=== PATIENT | female | born 1985 | race Caucasian/White ===

== ENCOUNTER 2018-01-22 09:12 | Emergency (ER) | payer MEDICAID, SELFPAY ==
[2018-01-22 09:13] VITALS: BP 139/88; PULSE 116; RESP 30; TEMP 36.4; O2SAT 99; BMI 49.2
--- NOTE | 2018-01-22 09:29 | ED.DCSUM_ITS ---
- ER Visit Summary Date of Service: 01/22/18 Chief Complaint: Sore throat History of Present Illness: The patient is a 32 F 3 of asthma currently 13 weeks . Ab1. Due date 08/03/2018. She has never had a DVT or PE. Patient states she has a sore throat. Painful to swallow. States she feels short of breath. Cough of green phlegm. Subjective fever and chills. Physical Examination: Young female anxious. Vital signs are stable afebrile. Pulse ox 99% on room air no signs of hypoxia. She is in no acute distress. HEENT exam posterior pharynx has enlarged red tonsils with exudate bilaterally. Airways patent. No drooling. Able to swallow. No stridor. Neck trachea midline. Minimal anterior chain lymphadenopathy. Lungs clear to auscultation bilaterally. Heart regular rhythm no murmur. Abdomen is obese but soft nontender normal bowel sounds no peritoneal signs. She is moving all 4 extremities without edema or cords. No calf tenderness. Neurologically she is awake alert with no focal motor deficits. Emotionally she is anxious and tearful but calms down with reassurance. Test Results: None Emergency Department Course and Treatment: History and exam are consistent with strep throat. Be started on amoxicillin 500 3 times daily for 10 days. Warm salt water gargling. Fluids and rest. Tylenol for pain. Treatment Plan: Amoxicillin 3 times daily for 10 days Disposition: Discharge Impression: Acute strep tonsillitis First trimester This note was generated with [employer] dictation software. It may contain incorrect words, spelling, and punctuation that were not noted in review of the chart prior to signing ED Disposition - Plan for ED Patient: Chief Complaint: Shortness of Breath Referrals: Polly Torres DO [Primary Care Provider] -
--- NOTE | 2018-01-22 09:29 | ED.DEP ---
ED Disposition - Plan for ED Patient: Disposition: Home or Assisted Living Chief Complaint: Shortness of Breath Instructions: Strep Throat Prescriptions: Albuterol Inhaler [Ventolin Hfa] 1 - 2 puff INHALATION Q4H PRN PRN #1 inhaler PRN Reason: Wheezing Amoxicillin 500 mg PO TID #30 tab Referrals: Polly Torres DO [Primary Care Provider] - 3-5 Days if not improving Additional Instructions: Plenty of fluids and rest. Warm salt water gargling. Tylenol for pain. Diagnosed with strep throat. Amoxicillin 3 times a day for 10 days should resolve that. For your constipation plenty of fluids, fruits, vegetables and fiber. Follow-up your doctor if not improving or return to ER feeling worse.
[2018-01-22] MEDS: AMOXICILLIN 500 MG CAPSULE PO (09:41)
[2018-01-22 09:56] VITALS: O2SAT 96
--- NOTE | 2018-01-23 13:55 | CM.ED ---
ED CM Callback: Attempted to followup with patient. Voicemail left with contact information requesting return call if patient has any questions/concerns.
== END 2018-01-22 09:56 | disposition home or self-care (01) ==
LOC: ED 09:38
PROVIDERS: Emergency Provider Emergency Medicine; Family Provider Family Medicine; PCP Family Medicine
DX: O26.891 Other specified pregnancy related conditions, first trimester (principal); J03.00 Acute streptococcal tonsillitis, unspecified; R05 Cough; J45.909 Unspecified asthma, uncomplicated; Z87.891 Personal history of nicotine dependence; Z3A.13 13 weeks gestation of pregnancy
CPT/HCPCS: 99282

== ENCOUNTER → 2018-04-29 10:59 | Outpatient (CLI) | payer MEDICAID, SELFPAY | PROVIDERS: Family Provider Family Medicine; PCP Family Medicine; Visit Provider Family Medicine | DX: O26.892 Other specified pregnancy related conditions, second trimester (principal); R00.2 Palpitations; Z3A.26 26 weeks gestation of pregnancy | CPT/HCPCS: 93225; 93226 ==

== ENCOUNTER 2018-05-24 20:58 | Outpatient (CLI) | payer MEDICAID, SELFPAY ==
[2018-05-24 21:23] VITALS: BMI 48.9
[2018-05-24 21:36] LABS: Red Blood Cells-Urine 0 SEEN /hpf (0-5)
[2018-05-24 21:50] LABS: Color, Urine Yellow (Yellow); Glucose, Dipstick Normal (Normal); Ketone-Dipstick 5 mg/dl (Negative); Leukocyte Esterase-Dipstick 100 /ul (Negative); Nitrite-Dipstick Negative (Negative); Occult Blood-Urine Negative /ul (Negative); Protein-Dipstick 30 mg/dl (Negative); Specific Gravity, Urine 1.025 (1.002-1.030); Urine Clarity Sl. Cloudy (Clear); Urine Urobilinogen 4 mg/dl (Normal)
[2018-05-24 21:55] LABS: Urine Bilirubin Dipstick 1 mg/dL (Negative)
[2018-05-24 22:06] LABS: Bacteria 4+ /hpf (None Seen); Mucous, Urine 2+ /hpf (<or=2+); Squamous Epithelial Cells - UA 25-50 SEEN /hpf (5-10); White Blood Cells 10-25 SEEN /hpf (0-5)
--- NOTE | 2018-05-25 01:35 | OB.TRI.NOTE ---
- Problem List (1) False labor Status: Acute History of Present Illness Date of Service: 05/24/18 Was patient seen by the physician?: No Reason For Visit: R/O LABOR Date of Service: 05/24/18 Final EFRAIN: 08/03/18 Final EFRAIN Source: US <20 weeks Gestational age: 30 Weeks and 0 Days History of Present Illness: Presented to L&D with complaint of abdominal pain and uterine contractions. Denied any leakage of fluid or vaginal bleeding. Good movement. Allergies sertraline HCl [From Zoloft] Allergy (Verified 01/22/18 09:14) Rash Sulfa (Sulfonamide Antibiotics) Allergy (Verified 05/24/18 21:35) Rash tomato [Tomato] Allergy (Verified 01/22/18 09:14) Hives NST - FHR Rate Baby A Baseline: 130 Variability:: Moderate Accelerations:: 15 x 15 Decelerations:: None NST Reactive:: Yes, Appropriate for gestational age Uterine Activity:: Irregular Impression/Plan A: False labor P: 1) D/C home
== END 2018-05-24 22:50 | disposition home or self-care (01) ==
LOC: WPOUT 21:22 → WP 21:23
PROVIDERS: Family Provider Family Medicine; PCP Family Medicine; Visit Provider Obstetrics & Gynecology
DX: O47.03 False labor before 37 completed weeks of gestation, third trimester (principal); Z3A.30 30 weeks gestation of pregnancy
CPT/HCPCS: 59025; 59050; 81001; 87086; 87088; 99218; G0378

== ENCOUNTER 2018-07-09 10:30 | Outpatient (RCR) | payer MEDICAID, SELFPAY ==
--- NOTE | 2018-05-06 09:35 | HP.PTEVAL_ITS ---
Patient's Visit Information DARSHAN MANCERA is a 32 year old F referred to Physical Therapy by June Negro MD with a diagnosis of Sciatica. Date of Evaluation: 05/01/18 Physical Therapist: Seven Garcia - Visit Plan Frequency: 2x /Week Duration: 4-6 Weeks Plan: Start with aquatic setting hip/core stability, improve postural education and awareness, HS stretching, deep water distraction. Educated Pt on SI belt to increase stability. - Subjective Subjective: Pt. is here today for her initial evaluation diagnosis of R sided sciatica. Pt. is ~24 weeks and has been having increased symptoms for about 2 months. Pt. reports pain going down her leg to her foot with numbness and tingling fequently. Pt. has has relief, briefly, with transitions rn care coordinator. Pt. reports increased pain with bending over, lifting, walking for prolonged times, sitting for too long. Decreased pain: supine lying. Pt. reports havig relief with aquatic therapy previously. Pt. has not trialed any exercises currently. Pt. reports having similar issues with previous . Pt. does reports some R leged weakness as times. Pt. is hopeful to reduce symptoms in order to get back to all reactional activities and ADLs without limitations. - Pain R leg Pain Intensity (Out of 10): 4 Pain Intensity Range: 2, 6 Low back Pain Intensity (Out of 10): 2 Pain Intensity Range: 2, 6 - Objective POSTURE: Pt. has increased lumbar lordosis with anterior pelvic rotation. Pt. has increased pain with attempting to correct. Pt. has wide CHRITSINE and normal iliac crest heights. PALAPTION: Pt. has increased tenderness at bilateral erect spinal throughout the lumbar spine, R sided SI and R sided piriformis. NEUROLOGICAL: Pt. has normal sensation to light and sharp touch of BLEs. Pt. has 2+ bilateral achilles and patellar DTR. Pt. is able to rise on heels and toes without limitations. ROM: LUMBAR SPINE: flexion- min loss increase NW, ext min loss increase NW, SB min loss to R side increase NW, SB L nil loss NE, rotation R min lsos increase NE, rotation L min loss increase NW. Pt. has tight BLE HS, tight hip flexors bilaterally. MMT: RLE- ankle 5/5 throughout; knee- ext 4+/5, flexion 4/5; hip- flexon 4/5 increase NW, abd 4/5, ext 4/5. LLE- ankle 5/5 througout; knee- ext 4+/54, flexion 4+/5; hip- flexion 4+/5, abd 4/5, ext 4/5. Core strength- poor. GAIT: Pt. has increased lateral hip translation, B knee valgus, sway back positioning. Increased pain noted with walking. Minimal arm swing bilaterally noted. STAIRS: Pt. is kory to negotiate with 2 HR with reciprocal pattern, but does have heavy use of HR. - Special Tests L/S Slump test left side: Negative L/S Slump test right side: Positive L/S Left Straight Leg Raise: Negative L/S Right Straight Leg Raise: Negative Lumbar Standing: Flexion - Mechanical Response: No effect Lumbar Standing: Flexion - Symptoms During Testing: Increases Lumbar Standing: Flexion - Symptoms After Testing: No worse Lumbar Standing: Extension - Mechanical Response: No effect Lumbar Standing: Extension - Symptoms During Testing: No effect Lumbar Standing: Extension - Symptoms After Testing: No effect Lumbar Standing: Right Side Glides - Mechanical Response: No effect Lumbar Standing: Right Side Ralph - Symptoms During Testing: No effect Lumbar Standing: Right Side Ralph - Symptoms After Testing: No effect Lumbar Standing: Left Side Ralph - Mechanical Response: No effect Lumbar Standing: Left Side Ralph - Symptoms During Testing: No effect Lumbar Standing: Left Side Ralph - Symptoms After Testing: No effect Lumbar Lying: Flexion - Mechanical Response: No effect Lumbar Lying: Flexion - Symptoms During Testing: No effect Lumbar Lying: Flexion - Symptoms After Testing: No effect Lumbar Lying: Extension - Mechanical Response: No effect Lumbar Lying: Extension - Symptoms During Testing: Increases Lumbar Lying: Extension - Symptoms After Testing: No worse - Goals Goal 1:: Pt. to be HEP compliant. Goal Time Frame: 4-6 Weeks Goal 2:: Pt. to have decreased pain in lumbar spine and RLE to 0-2/10 pain with all mobility. Goal Time Frame: 4-6 Weeks Goal 3:: Pt. to demonstrate improved posture in sitting and standing to reduce stress applied to lumbar spine. Goal Time Frame: 4-6 Weeks Goal 4:: Pt. to be educated in prophalxis techniques. Goal Time Frame: 4-6 Weeks - Rehabilitation Potential Physical Therapy Diagnosis: Pt. has signs and symptoms consistent with Sciatica. Pt. has increased pain going down R LE to foot, worse with walking, standing and lifting. Pt. would benefit from PT to increase core stability, HS length, and to improve proper posture. Pt. will start in aquatic setting to increase tolerance. Rehabilitation Potential: Good - Anticipated Interventions Patient/Client Instruction: Educate patient on: Condition, Plan of Care, Risk Factors, Benefits of Fitness Program For the Purpose of:: To improve health and function, To foster healthy habits, To improve decision making, To facilitate caregiver knowledge, To improve self management, To prevent re-injury, To improve ability to perform tasks related to life management, To improve tolerance to ADL's Therapeutic Exercise to Include: Strength training, Power training, Postural training, Flexibilty training, Gait and locomotor training, In an aquatic setting, Passive ROM, Active ROM, Dynamic Lumbar Stabilization, Arvin Exercises For the Purpose of:: To decrease pain, To increase ROM, To improve nutrient delivery to tissue, To increase oxygenation perfusion, To improve muscle performance and motor function Thank you for the opportunity to evaluate your patient. For Medicare and Medicare HMO plans, please review the plan of care and approve it. It will need to be FAXED BACK to us at [phone] for Medicare purposes. Please let me know if there are questions or concerns regarding this plan of care. Physician Signature: Date:
--- NOTE | 2018-06-15 11:59 | HP.PTREVAL ---
June Negro MD, It has been my pleasure to treat DARSHAN MANCERA over the last 12 visits for Sciatica. Please see the progress note below for an update on the physical therapy plan of care! Subjective: Pt. reports I am feeling great in the pool, but when I get out the pain starts to come back. Pt. reports being compliant with all HEP without adverse reaction. Objective/Function: ROM: lumbar spine- flexion min loss increase NW, ext min loss NE, SB min loss NE bilat, rotation nil loss bilat NE. BLEs- normal, tight HS. MMT: bilateral LEs 5/5 throughout, except 4/5 hip abd and hip flexion bilat. Core strength- poor+. GAIT: Pt. tends to Plan Plan: Pt. to continue with aquatic therapy with focus on ROM, core/SI stability exercises as tolerated. Pt. to be seen x2 per week for 3-4 weeks. Goals Goal 1:: Pt. to be HEP compliant. Goal Time Frame: 4-6 Weeks Goal 2:: Pt. to have decreased pain in lumbar spine and RLE to 0-2/10 pain with all mobility. Goal Time Frame: 4-6 Weeks Goal 3:: Pt. to demonstrate improved posture in sitting and standing to reduce stress applied to lumbar spine. Goal Time Frame: 4-6 Weeks Goal 4:: Pt. to be educated in prophalxis techniques. Goal Time Frame: 4-6 Weeks Anticipated Interventions Patient/Client Instruction: Educate patient on: Condition, Plan of Care, Risk Factors, Benefits of Fitness Program For the Purpose of:: To improve health and function, To foster healthy habits, To improve decision making, To facilitate caregiver knowledge, To improve self management, To prevent re-injury, To improve ability to perform tasks related to life management, To improve tolerance to ADL's Therapeutic Exercise to Include: Strength training, Power training, Postural training, Flexibilty training, Gait and locomotor training, In an aquatic setting, Passive ROM, Active ROM, Dynamic Lumbar Stabilization, Arvin Exercises For the Purpose of:: To decrease pain, To increase ROM, To improve nutrient delivery to tissue, To increase oxygenation perfusion, To improve muscle performance and motor function Please do not hesitate to contact me at [phone] by phone or if you have questions or concerns regarding this new plan of care! Sincerely, Seven Garcia
--- NOTE | 2018-06-15 12:07 | HP.PTREVAL ---
June Negro MD, It has been my pleasure to treat DARSHAN MANCERA over the last 12 visits for Sciatica. Please see the progress note below for an update on the physical therapy plan of care! Subjective: Pt. reports I am feeling great in the pool, but when I get out the pain starts to come back. Pt. reports being compliant with all HEP without adverse reaction. Objective/Function: ROM: lumbar spine- flexion min loss increase NW, ext min loss NE, SB min loss NE bilat, rotation nil loss bilat NE. BLEs- normal, tight HS. MMT: bilateral LEs 5/5 throughout, except 4/5 hip abd and hip flexion bilat. Core strength- poor+. GAIT: Pt. tends to has increased lumabr lordosis, sway back positioning with anterior tilted pelvis Plan Plan: Pt. to continue with aquatic therapy with focus on ROM, core/SI stability exercises as tolerated. Pt. to be seen x2 per week for 3-4 weeks. Pt. given HEP for quadriped positoning to work on SI/lumbar stability exercises. Goals Goal 1:: Pt. to be HEP compliant. Goal Time Frame: 4-6 Weeks Goal 2:: Pt. to have decreased pain in lumbar spine and RLE to 0-2/10 pain with all mobility. Goal Time Frame: 4-6 Weeks Goal 3:: Pt. to demonstrate improved posture in sitting and standing to reduce stress applied to lumbar spine. Goal Time Frame: 4-6 Weeks Goal 4:: Pt. to be educated in prophalxis techniques. Goal Time Frame: 4-6 Weeks Anticipated Interventions Patient/Client Instruction: Educate patient on: Condition, Plan of Care, Risk Factors, Benefits of Fitness Program For the Purpose of:: To improve health and function, To foster healthy habits, To improve decision making, To facilitate caregiver knowledge, To improve self management, To prevent re-injury, To improve ability to perform tasks related to life management, To improve tolerance to ADL's Therapeutic Exercise to Include: Strength training, Power training, Postural training, Flexibilty training, Gait and locomotor training, In an aquatic setting, Passive ROM, Active ROM, Dynamic Lumbar Stabilization, Arvin Exercises For the Purpose of:: To decrease pain, To increase ROM, To improve nutrient delivery to tissue, To increase oxygenation perfusion, To improve muscle performance and motor function Please do not hesitate to contact me at [phone] by phone or if you have questions or concerns regarding this new plan of care! Sincerely, Seven Garcia
--- NOTE | 2018-07-09 12:33 | HP.PTDCSUM ---
HP - PT D/C Summary It has been my pleasure to treat DARSHAN MANCERA under orders from June Negro MD, for the diagnosis of Sciatica for a total of 19 visit(s). Discharge Date: 07/09/18 Please see the following information for a summary of their discharge status. - Subjective Subjective: Pt. reports aquatic PT was helpful. Pt. reports having good relief with AT, but does have increased symptoms with getting out of pool. Pt. reports being 40% better with AT, but not a ton of lasting relief. Pt. does have sciatica type symptoms on R side, worse with working. - Pain R leg Pain Intensity (Out of 10): 4 Low back Pain Intensity (Out of 10): 4 - Overall Improvement % Improvement: 40 - Objective Objective/Function: ROM: LUMABR SPINE: Flexion min/mod loss adipose tissue in away, ext min loss NE, SB min loss NE, rotation min loss NE bilat. MMT: Pt. has 5/5 bilateral LE strength without increase in symptoms. POSTURE: Pt. has increased lumbar lordosis, sway back posture. Pt. has difficulty correcting due to wt. gain. Pt. is able to walking with tolerance to symptoms, but does reprot increased pain wtih prolonged standing and working. Pt. plans for next friday to be her last day of work. - Goals Goal 1:: Pt. to be HEP compliant. Goal Progress: Goal Met Goal 2:: Pt. to have decreased pain in lumbar spine and RLE to 0-2/10 pain with all mobility. Goal Progress: Progressing Goal 3:: Pt. to demonstrate improved posture in sitting and standing to reduce stress applied to lumbar spine. Goal Progress: Goal Met Goal 4:: Pt. to be educated in prophalxis techniques. Goal Progress: Goal Met - Plan Plan: Pt. to be DC to HEP at this point in time. - D/C Information Discharge Comments: Pt. was seen for her low back pain with sciatica. Pt. was treated in aquatic setting with decompression, stretching and postural education. Pt. was able to keep symptoms at bay and increase tolerance to all functional mobility. Pt. is close to full term with her and I do think that she will feel much better once she gives . Pt. to complete exercises on own at this point in time. If there are questions or concerns regarding this patient's physical therapy, please feel free to call me at [phone]. Thank you for the referral of this patient. Sincerely, Seven Garcia
== END 2018-07-09 19:00 | disposition home or self-care (01) ==
LOC: PT 10:30
PROVIDERS: Family Provider Family Medicine; PCP Family Medicine; Visit Provider Family Medicine
DX: O26.899 Other specified pregnancy related conditions, unspecified trimester (principal)
CPT/HCPCS: 97110; 97113; 97162; 97530

== ENCOUNTER 2018-07-28 05:00 | Inpatient (IN) | payer MEDICAID, SELFPAY ==
[2018-07-23 13:56] VITALS: BMI 48.4
[2018-07-28] VITALS (9 sets, daily range): BP systolic 99–118; BP diastolic 45–86; PULSE 72–116; RESP 16–24; TEMP 35.8–36.6; O2SAT 95–100; BMI 48.4
--- NOTE | 2018-07-28 | FALS_PTH ---
PATIENT: DARSHAN MANCERA LOC: [facility] U#:[id number] AGE/SX: 33/F ROOM: WP007 RE07/28/[address]: Dr. Harika Rush DO : 1985 BED: 1 DIS: 07/31/2018 SPEC #: [id number] RECD: 07/29/18 13:23 STATUS: JH CONNIE #: [id number] JARED: 07/28/18 00:[address]: Harika Rush DEPT: SURGICAL PATHOLOGY RECD BY: Chuck Quick ENTERED: 07/29/18 13:23 SP TYPE: FALL TUBES OTHR DR: Dr. Polly Torres DO Tissues: Fallopian tube Procedures: Surgery Specimen Level II HEADER OPERATION: Tubal ligation PRE-OP DIAGNOSIS: Desired sterilization TISSUE SUBMITTED: Fallopian tubes, suture in right tube MICROSCOPIC DIAGNOSIS Bilateral fallopian tubes, tubal ligation: Completely transected segments of bilateral fallopian tubes, no pathologic diagnosis. SJ:bernie 07/30/18 MICROSCOPIC DESCRIPTION Slides are reviewed. GROSS DESCRIPTION Received is one container labeled with the patient's name and designated bilateral fallopian tubes, stitch in right tube. The specimen consists of two tubular pieces of blas soft tissue. The right tube is identified by a stitch and is inked black. The right tube measures 0.8 cm in length and 0.5 cm in diameter. The left tube measures 0.5 cm in length and 0.5 cm in diameter. The entire specimen is submitted in one cassette. / JONO:bernie 07/29/18 TC:4 CPT: 26655 x2
[2018-07-28] MEDS: Lactated Ringers 1,000 ML 999 ML IV ×2 (05:45→06:43)
[2018-07-28 06:03] LABS: Absolute Lymphocyte Count 1.86 X10^3/ul (0.83-4.51); Basophil# 0.01 X10^3/uL; Basophil% 0.1 % (0-1); Eosinophil# 0.09 X10^3/uL; Eosinophils% 1.1 % (0-5); Hematocrit 32.5 % (37-47); Hemoglobin 10.5 g/dl (12.0-15.0); Lymphocyte # 1.86 X10^3/ul (4.0); Mean Corp Hgb Conc 32.3 g/gl (32-36); Mean Corpuscular Hgb 29.1 pg (27.0-32.0); Mean Platelet Vol. 9.8 fl (6.2-12.0); Monocyte# 0.52 X10^3/uL; Monocyte% 6.1 % (0-10); Neutrophil # 5.96 X10^3/uL (2.7-7.7); Neutrophil % 70.5 % (47-70); Platelet Count 320 K/mm3 (150-450); RBC Distribution Width CV 13.7 % (11.6-14.6); RBC Distribution Width SD 43.9 fl (35.1-43.9); Red Blood Count 3.61 M/mm3 (4.2-5.4); White Blood Count 8.5 K/mm3 (4.4-11.0)
[2018-07-28 06:26] LABS: POSITIVE COUNT NO; POSITIVE DIFFERENTIAL NO; POSITIVE MORPHOLOGY NO
[2018-07-28] MEDS: Sodium Citrate/Citric Acid 30 ML UDC PO (06:58)
[2018-07-28] MEDS: Oxytocin 30 units/NS 500 ml 30 UNITS/500 ML IV.SOLN 167 UNITS IV (08:00)
--- NOTE | 2018-07-28 08:54 | HP.PCM_ITS ---
- Problem List (1) History of delivery Status: Acute History Date of Admission: 07/28/18 Final EFRAIN: 08/03/18 Final EFRAIN Source: US <20 weeks Gestational age: 39 Weeks and 1 Days History of this : This is a 33 year-old, G3, P1011, at 38 weeks gestational age who presents for a schedule RLTCS. Denies contractions, loss of fluid, vaginal bleeding. Good movement. significant for history of depression. Depression was diagnosed at age 10, and she had been off of medication since age 12. History of ADHD. Was taking Adderall prior, and stopped this medication in . History of marijuana use with positive urine drug screens. History of a prior , tobacco use, and obesity. History of anemia on iron supplement. History of heart palpitations that was worked up by her PCP. She was started on propranolol as needed after wearing a Holter monitor. She was referred to cardiology in her 3rd trimester of , and had an EKG that was nonacute and an echo that was limited but within normal limits. Palpitations were thought to be secondary to . History also significant for mild intermittent asthma without complications. Medical History: Medical History (Last Updated 07/28/18 @ 08:55 by Harika Rush DO) ADHD F90.9 Anemia D64.9 Asthma J45.909 Depression F32.9 Heart palpitations R00.2 Marijuana use F12.90 Obesity affecting O99.210 Tobacco use Z72.0 Allergies sertraline HCl [From Zoloft] Allergy (Verified 01/22/18 09:14) Rash Sulfa (Sulfonamide Antibiotics) Allergy (Verified 05/24/18 21:35) Rash tomato [Tomato] Allergy (Verified 01/22/18 09:14) Hives Home Medications: Home Medications Albuterol Inhaler [Ventolin Hfa] 1 - 2 puff INHALATION Q4H PRN PRN #1 inhaler 01/22/18 Ferrous Sulfate [Iron] 325 mg PO DAILY 05/24/18 Vits [Prenatabs FA] 1 tablet PO DAILY 05/24/18 Propranolol HCl 10 mg PO PCHS PRN MDD 40mg 05/24/18 Docusate Sodium [Stool Softener] 100 mg PO 07/28/18 Smoking Status: Former smoker Substance Use Type: Marijuana Number of Fetus(es): 1 Heart Tracin's History Past Pregnancies: Past Pregnancies Delivery Date Name GA/Weeks Outcome Route Weight Infant Gender Labor Length Anesthesia Delivery Location Provider FOB term PLTCS [facility] Expected Delivery Method: Scheduled Section Review of Systems Gynecological: Reports: - - No ctx, vb, lof. Good FM Physical Exam General: Alert, Oriented x3 HEENT: Atraumatic Lungs: - - No increased resp effort Abdomen: Soft, Gravid, - - obese with large pannus Neurological: Neuro grossly intact NEUROPSYCHOLOGY DIVISION CHIEF: Normal external genitalia Estimated gestational size: Appropriate for gestational size Presentation: Breech Assessment/Plan All Active Problems False labor (Acute) History of delivery (Acute) This is a 33 year-old, G3, P1011, at 38 weeks gestational age presents for scheduled repeat section and BPS. - Admit for routine care - Ancef - CBC, T&S - Discussed risks of section including bleeding with need for blood transfusion, infection with wound complications, and damage to surrounding organs. Consent signed - She is 100% certain she desires permanent sterilization - Social work to see for +UDS in
[2018-07-28] MEDS: Ketorolac 30 MG/ML Syringe IV ×3 (10:14→21:31)
--- NOTE | 2018-07-28 12:39 | OP.PCM_ITS ---
- Problem List (1) History of delivery Status: Acute Delivery Classification: Scheduled Final EFRAIN: 08/03/18 Gestational age: 39 Weeks and 1 Days Indications: Term gestation, history of prior section, breech presentation, desires permanent sterilization Indications for : Repeat Elective , Desires elective sterilization, Breech, Previous Uterine Surgery Description of Procedure: Patient was taken to the operating room where spinal anesthesia was administered without difficulty and found to be adequate. The patient was prepped and draped in the usual sterile fashion in the dorsal supine position with a leftward tilt. A Pfannenstiel skin incision was made with a scalpel and carried through to the underlying layer of fascia. The fascia was noted to be dense with prior scarring. The fascia was incised in the midline and extended laterally using Avilez scissors. Dharmesh clamps were used to elevate the superior aspect of the fascial incision, and underlying rectus muscles were dissected off using Avilez scissors. The fascia was noted to be adhered to the underlying rectus muscles. Attention was then turned to the inferior aspect of the fascial incision which was again grasped with Dharmesh clamps, elevated, and the underlying rectus muscles were dissected off using Avilez scissors. Adhesions were again noted from the rectus to the fascia. The rectus muscles were adhered in the midline. The rectus muscles were dissected in the midline using the Bovie. The peritoneum was identified and entered bluntly. The incision was extended superiorly with Metzenbaum scissors. The incision was extended bluntly with traction. The rectus and peritoneum were extended minimally towards the patient's left side using Bovie for more room to accommodate delivery of the . The bladder blade was inserted. The bladder was identified. A low transverse incision was made on the uterus with the scalpel and extended bluntly. An anterior placenta was noted upon entry into the uterus. The infant was in breech presentation. The feet, body, and arms of the were delivered. Bandage scissors were then used to extend the uterine incision out towards the patient's right side to accommodate delivery of the head. The head was then delivered. The cord was clamped and cut immediately and the was subsequently handed off to the waiting nursery nurse. The placenta was delivered with manual extraction. The uterus was exteriorized and cleared of all clot and debris. The uterine incision was repaired using Vicryl in a running locked fashion. An additional [id number] was placed in the center of the uterine incision for hemostasis. Hemostasis was visualized. Attention was then turned to the right fallopian tube which was grasped with a [place] clamp. A 2 cm segment of the tube was ligated twice and transected. The right fallopian tube was sent to pathology. Attention was then turned to the left fallopian tube, which was grasped with a [place] clamp, ligated twice, and then transected. The left fallopian tube was sent to pathology for review. Hemostasis was visualized bilaterally. Normal ovaries bilaterally. The uterus was then returned to the abdomen. The uterine incision was reexamined and it was noted to be minimally oozy but hemostatic. Miri was placed over the uterine incision. The fascia was then closed with 0-looped PDS in a running fashion. The subcutaneous layer was irrigated and made hemostatic using Bovie. A 3-0 Vicryl was used to close the subcutaneous space. The skin was then closed in a subcuticular fashion. Sponge, lap, and instrument counts were correct. The patient was stable at the completion of the procedure and was transferred to the recovery room in stable condition. Amniotic Fluid Description: Clear Specimen(s) sent to pathology: Bilateral fallopian tubes Drain: Goddard to straight drain Cord Entanglement: Around neck x 2, loose Nuchal Cord Compression: Without compression Esitmated Blood Loss (ml): 800 Delayed cord clamping: No - Admit VTE Documentation VTE Mechan Device Prophylaxis: SCD's
[2018-07-28] MEDS: Lactated Ringers 1,000 ML 100 ML IV ×2 (12:59→22:50)
[2018-07-28] MEDS: Prenatal Vits Tablet 1 TABLET PO (13:00)
[2018-07-28] MEDS: Docusate Sodium 100 MG Capsule PO ×2 (13:00→21:22)
[2018-07-28] MEDS: Ferrous Sulfate 325 MG Tablet PO (13:00)
[2018-07-28 15:30] LABS: Pathology Specimen OB SEE PATHOLOGY REPORT
[2018-07-28] MEDS: 0.9% Saline Lock 10 ML Syringe IV (21:31)
[2018-07-28] MEDS: Enoxaparin 40 MG/0.4 ML Syringe SC (21:33)
[2018-07-29] VITALS (8 sets, daily range): BP systolic 101–134; BP diastolic 49–68; PULSE 80–96; RESP 16–19; TEMP 36.1–36.7; O2SAT 95–97
[2018-07-29] MEDS: 0.9% Saline Lock 10 ML Syringe IV (03:52)
[2018-07-29] MEDS: Ketorolac 30 MG/ML Syringe IV (03:52)
--- NOTE | 2018-07-29 06:56 | NURSING ---
@ 0410 silver mepilex dressing with steri strips changed at bedside due to saturated mepilex dressing.
[2018-07-29 07:04] LABS: Hematocrit 26.9 % (37-47); Hemoglobin 8.5 g/dl (12.0-15.0); Mean Corp Hgb Conc 31.6 g/gl (32-36); Mean Corpuscular Hgb 29.1 pg (27.0-32.0); Mean Corpuscular Volume 92.1 fL (81-99); Mean Platelet Vol. 9.9 fl (6.2-12.0); Platelet Count 244 K/mm3 (150-450); RBC Distribution Width CV 13.8 % (11.6-14.6); RBC Distribution Width SD 44.7 fl (35.1-43.9); Red Blood Count 2.92 M/mm3 (4.2-5.4); White Blood Count 7.9 K/mm3 (4.4-11.0)
--- NOTE | 2018-07-29 07:06 | NURSING ---
@ 0612 Dr. Zuniga called and updated on pt dressing change due to saturation. RN states steri strips and silver mepilex dressing changed, previous dressing saved if physician rounding wishes to look at. Dr. Zuniga states Dr. Rush will be rounding this AM and can take a look at old dressing.
[2018-07-29 07:07] LABS: Scan Indicated on CBC? Y/N NO
--- NOTE | 2018-07-29 07:51 | PN.OBGYN_ITS ---
Patient Problems: Active and Suspected Problems History of delivery (Acute) Subjective: Doing well. Pain is well controlled. Tolerated dinner last night without nausea or vomiting. Has ambulated around in the room, and to chair. Goddard was just removed, and she has not yet spontaneously voided. She denies fevers, marcie st pain, shortness of breath, palpitations, and leg pain. without difficulty. Normal lochia. - Physical Exam General: Alert, Oriented x3 HEENT: Atraumatic Lungs: - - No increased resp effort Abdomen: Soft, Non Tender, Non-Distended, - - Obese, non-acute, difficult to assess fundus given body habitus Extremities: No edema, No Calf Tenderness Skin: - - Dressing with 3 cm area of blood centrally Neurological: Neuro grossly intact Psych/Mental Status: Normal Affect, Appropriate Vital Signs Temp Pulse Resp BP Pulse Ox 96.9 F L 86 19 H 101/49 L 97 07/29/18 03:45 07/29/18 06:15 07/29/18 06:15 07/29/18 03:45 07/29/18 06:15 Oxygen Delivery Method Room Air Weight: 328 lb Body Mass Index (BMI) 48.4 Intake and Output for Last 24 Hours 07/27/18 07/28/18 07/29/18 23:59 23:59 23:59 Intake Total 4941 / 4941 1986 / 1986 Output Total 600 / 600 775 / 775 Balance 4341 / 4341 1212 / 1212 Laboratory Tests Past 24 Hrs 07/29/18 06:50 WBC 7.9 RBC 2.92 L Hgb 8.5 L Hct 26.9 L MCV 92.1 MCH 29.1 MCHC 31.6 L RDW 13.8 RDW Differential 44.7 H Plt Count 244 MPV 9.9 Medical Necessity - Tobacco Use Smoking Status: Former smoker Assessment/Plan All Active Problems False labor (Acute) History of delivery (Acute) POD#1 s/p RLTCS - Doing well - Hgb 8.5 (from 10.5 pre-op), continue home iron supplement - Await spont void today, and encourage ambulation - - PPBC: S/p BPS - Dispo: Routine PO care
[2018-07-29] MEDS: oxyCODONE 5 MG Tablet PO ×3 (10:42→21:20)
[2018-07-29] MEDS: Docusate Sodium 100 MG Capsule PO ×2 (10:43→21:20)
[2018-07-29] MEDS: Prenatal Vits Tablet 1 TABLET PO (14:36)
[2018-07-29] MEDS: Ferrous Sulfate 325 MG Tablet PO (14:36)
[2018-07-29] MEDS: Ibuprofen 600 MG Tablet PO (14:39)
[2018-07-29] MEDS: Enoxaparin 40 MG/0.4 ML Syringe SC (21:20)
--- NOTE | 2018-07-29 21:42 | NURSING ---
Mepilex dressing saturated >50% with serosanguineous fluid. Mepilex removed, and replaced with a pressure dressing of ABD and tape per verbal order from Dr. Rush. Incision not red or swollen. Incision clean and dry.
--- NOTE | 2018-07-29 23:29 | NURSING ---
Patient complains of burning and itching from tape on new dressing. Dressing removed, skin red and irritated, washed with soap and water and patted dry. New Telfa, ABD, and different tape placed. Small amount of serosanguineous drainage on old dressing.
[2018-07-30 01:40] VITALS: BP 143/62; PULSE 93; RESP 18; TEMP 36.6; O2SAT 96
[2018-07-30] MEDS: oxyCODONE 5 MG Tablet PO ×4 (01:43→22:05)
[2018-07-30 08:00] VITALS: BP 126/62; PULSE 92; RESP 18; TEMP 36.7; O2SAT 96
--- NOTE | 2018-07-30 08:29 | PN.OBGYN_ITS ---
Patient Problems: Active and Suspected Problems History of delivery (Acute) Subjective: Patient is doing well. Tolerating regular diet without nausea or vomiting. Ambulating in the hallway without difficulty. Spontaneously voiding. Denies fevers, chest pain, shortness of breath, uncontrolled pain, leg pain. Breast-f eeding without difficulty. Lochia normal. Pain controlled. - Physical Exam General: Alert, Oriented x3 HEENT: Atraumatic Lungs: - - No increased resp effort Abdomen: Soft, - - ATTP, cannot assess fundus given body habitus. Incision healing well and intact. No surrounding swelling, fluctuance, errythema. Incision probed and fascia felt to be intact, with scant serous drainage from incision. Pressure dressing reapplied Extremities: No Calf Tenderness Neurological: Neuro grossly intact Psych/Mental Status: Normal Affect, Appropriate Vital Signs Temp Pulse Resp BP Pulse Ox 97.9 F 93 18 143/62 H 96 07/30/18 01:40 07/30/18 01:40 07/30/18 01:40 07/30/18 01:40 07/30/18 01:40 Oxygen Delivery Method Room Air Weight: 328 lb Body Mass Index (BMI) 48.4 Intake and Output for Last 24 Hours 07/28/18 07/29/18 07/30/18 23:59 23:59 23:59 Intake Total 4941 / 4941 1986 / 1986 Output Total 600 / 600 1775 / 1775 Balance 4341 / 4341 212 / 212 Medical Necessity - Tobacco Use Smoking Status: Former smoker Assessment/Plan All Active Problems False labor (Acute) History of delivery (Acute) POD#2 s/p RLTCS with BPS - Doing well - Isolated mild range BP, will need to continue to monitor - without difficulty - Had to reapply 3 dressings due to drainage from incision. Incision c/d/i this morning, healing well, fascia probed and intact, minimal serous drainage. Discussed risk for wound complication with patient given body habitus - PPBC: S/p BPS - Dispo: Routine PO care. Meeting all milestones but will continue to monitor BP and incision
[2018-07-30] MEDS: Ibuprofen 600 MG Tablet PO ×2 (08:33→14:22)
[2018-07-30] MEDS: Docusate Sodium 100 MG Capsule PO ×2 (10:32→22:05)
[2018-07-30] MEDS: Prenatal Vits Tablet 1 TABLET PO (10:32)
[2018-07-30] MEDS: Ferrous Sulfate 325 MG Tablet PO (10:32)
[2018-07-30 14:29] VITALS: BP 125/80; PULSE 98; RESP 18; TEMP 36.4
--- NOTE | 2018-07-30 16:20 | NURSING ---
Was asked to assess incision for possible wound VAC placement. earlier in the day, patient had a large amount of drainage. dressing was changed at [address] Rush. currently there is one area of drainage noted on the dressing less than the size of a dime. incision well approximated. will hold off on wound VAC and reassess in the am. May be difficult to keep a good seal in the crease with patient's large pannus. was most likely just a small seroma. will monitor. no signs of infection noted.
[2018-07-30 21:35] VITALS: BP 115/52; PULSE 88; RESP 20; TEMP 36.9
[2018-07-30] MEDS: Enoxaparin 40 MG/0.4 ML Syringe SC (22:06)
[2018-07-31] MEDS: oxyCODONE 5 MG Tablet PO ×2 (02:52→08:43)
[2018-07-31 03:08] VITALS: BP 131/67; PULSE 90; RESP 18; TEMP 36.7
--- NOTE | 2018-07-31 08:00 | NURSING ---
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
--- NOTE | 2018-07-31 08:22 | PCM.PN.OB ---
Patient Problems: Active and Suspected Problems History of delivery (Acute) Subjective: Patient doing well. Feels ready to go home today. Tolerating regular diet without nausea or vomiting. Bleeding and spontaneously voiding without difficulty. Normal lochia. No chest pain, shortness of breath, palpitations, leg pain. She is breast-feeding without difficulty. - Physical Exam General: Alert, Oriented x3 HEENT: Atraumatic Lungs: - - No increased resp effort Abdomen: Soft, Non Tender, - - Dressing over incision is c/d/i, no further drainage from incision Extremities: No Calf Tenderness Skin: No rashes Neurological: Neuro grossly intact Psych/Mental Status: Normal Affect, Appropriate Vital Signs Temp Pulse Resp BP Pulse Ox 98.1 F 90 18 131/67 H 96 07/31/18 03:08 07/31/18 03:08 07/31/18 03:08 07/31/18 03:08 07/30/18 08:00 Oxygen Delivery Method Room Air Weight: 328 lb Body Mass Index (BMI) 48.4 Intake and Output for Last 24 Hours 07/29/18 07/30/18 07/31/18 23:59 23:59 23:59 Intake Total 1986 / 1986 Output Total 1775 / 1775 Balance 212 / 212 Medical Necessity - Tobacco Use Smoking Status: Former smoker Assessment/Plan All Active Problems False labor (Acute) History of delivery (Acute) POD#3 s/p RLTCS w/ BPS. - AF, VSS - Meeting all milestones - Incision no longer draining - Reviewed discharge instructions with patient. D/c home today. To see early next week for wound check
--- NOTE | 2018-07-31 08:28 | PCM.DC.BLA ---
Discharge Summary Date of Admission: 07/28/18 Date of Discharge: 07/31/18 Summary: Patient is a 33-year-old who presented at 39 weeks gestation for a scheduled repeat low transverse section with BPS. She had a history of 1 prior section and desired permanent sterilization. She was 100% certain she no longer wanted kids in the future. Her section and postoperative course were uncomplicated. She was ambulating, tolerating regular diet, spontaneously voiding, and pain was well controlled on day of discharge. She was discharged home on postoperative day #3. Patient Problems: Active and Suspected Problems History of delivery (Acute) - Physical Exam Vital Signs Temp Pulse Resp BP Pulse Ox 98.1 F 90 18 131/67 H 96 07/31/18 03:08 07/31/18 03:08 07/31/18 03:08 07/31/18 03:08 07/30/18 08:00 Oxygen Delivery Method Room Air Weight: 328 lb Body Mass Index (BMI) 48.4 Intake and Output for Last 24 Hours 07/29/18 07/30/18 07/31/18 23:59 23:59 23:59 Intake Total 1986 Output Total 1775 / 1775 Balance 212 / 212
--- NOTE | 2018-07-31 08:30 | PCM.DCCSEC ---
Discharge Diet: No Restrictions Discharge Activity: May not drive while taking narcotic pain medications., May Shower May resume sexual activity in: 4-6 weeks Weight Bearing Status: Full weight bearing Lifting Restrictions: No heavy lifting > 25 pounds Call your doctor if your incision/area has: Sudden Increased Bleeding, Increased Pain/ Swelling, Increased Redness, Foul Smelling Discharge, Swelling at the incision site Call your doctor if you observe: Fever of 101 or Higher, Using more than one pad per hour, Shortness of breath, Chest pain, Increased palpitations (irregular heartbeat), Calf discomfort, Uncontrolled pain Suture Line Care: Avoid Pulling/Pushing, Avoid Pinching/Bending Cleanse incision/area with: Soap & Water Additional Instructions: If you experience any of the following, contact your healthcare provider. Bleeding that soaks a pad every hour for 2 hours Fever 100.4 or higher Unrelieved incision or abdominal pain Swelling, redness, discharge or bleeding from your incision or episiotomy site Your incision begins to separate Problems urinating (including inability to urinate or burning while urinating). Visual changes Severe headache Flu-like symptoms Pain or redness in one of both of your breasts Pain, warmth, tenderness or swelling in your legs, especially the calf area Frequent nausea and vomiting Symptoms of depression or anxiety If you experience any of the following, call 911 or go to the nearest Emergency Room. Chest pain Problems breathing Seizure activity Partial or complete paralysis of a body part, slurred speech, weakness or drooping of the face, or a sudden inability to walk or hold your balance Allergies/Adverse Reactions: Allergies sertraline HCl [From Zoloft] Allergy (Verified 01/22/18 09:14) Rash Sulfa (Sulfonamide Antibiotics) Allergy (Verified 05/24/18 21:35) Rash tomato [Tomato] Allergy (Verified 01/22/18 09:14) Hives Medications to take at Discharge Albuterol Inhaler [Ventolin Hfa] 1 - 2 puff INHALATION Q4H PRN PRN #1 inhaler 01/22/18 Ferrous Sulfate [Iron] 325 mg PO DAILY 05/24/18 Vits [Prenatabs FA] 1 tablet PO DAILY 05/24/18 Propranolol HCl 10 mg PO PCHS PRN MDD 40mg 05/24/18 Docusate Sodium [Stool Softener] 100 mg PO 07/28/18 Ibuprofen [Motrin] 800 mg PO Q8H PRN 30 Days #30 tablet 07/31/18 Oxycodone HCl/Acetaminophen [Percocet 5/325] 1 tablet PO Q6H PRN PRN 7 Days #28 tablet 07/31/18 The following prescriptions were given: Oxycodone HCl/Acetaminophen [Percocet 5/325] 1 tablet PO Q6H PRN PRN 7 Days #28 tablet PRN Reason: Pain Ibuprofen [Motrin] 800 mg PO Q8H PRN 30 Days #30 tablet PRN Reason: Pain Follow-Up: Call to make an appointment with your doctor for an incision check in 1-2 weeks. You will also need a 6 week post- follow up appointment. Test results from this visit will be discussed in further detail at your follow-up appointment, if applicable. Please Follow Up With: Harika Rush DO When: 1 week for wound check and in 4-6 weeks for Primary Care Physician: Polly Torres DO [Primary Care Provider] -
--- NOTE | 2018-07-31 08:33 | DCINST_ITS ---
Discharge Diet: No Restrictions Discharge Activity: May not drive while taking narcotic pain medications., May Shower May resume sexual activity in: 4-6 weeks Weight Bearing Status: Full weight bearing Lifting Restrictions: No heavy lifting > 25 pounds Call your doctor if your incision/area has: Sudden Increased Bleeding, Increased Pain/ Swelling, Increased Redness, Foul Smelling Discharge, Swelling at the incision site Call your doctor if you observe: Fever of 101 or Higher, Using more than one pad per hour, Shortness of breath, Chest pain, Increased palpitations (irregular heartbeat), Calf discomfort, Uncontrolled pain Suture Line Care: Avoid Pulling/Pushing, Avoid Pinching/Bending Cleanse incision/area with: Soap & Water Additional Instructions: If you experience any of the following, contact your healthcare provider. * Bleeding that soaks a pad every hour for 2 hours * Fever 100.4 or higher * Unrelieved incision or abdominal pain * Swelling, redness, discharge or bleeding from your incision or episiotomy site * Your incision begins to separate * Problems urinating (including inability to urinate or burning while urinating). * Visual changes * Severe headache * Flu-like symptoms * Pain or redness in one of both of your breasts * Pain, warmth, tenderness or swelling in your legs, especially the calf area * Frequent nausea and vomiting * Symptoms of depression or anxiety If you experience any of the following, call 911 or go to the nearest Emergency Room. * Chest pain * Problems breathing * Seizure activity * Partial or complete paralysis of a body part, slurred speech, weakness or drooping of the face, or a sudden inability to walk or hold your balance Allergies/Adverse Reactions: Allergies sertraline HCl [From Zoloft] Allergy (Verified 01/22/18 09:14) Rash Sulfa (Sulfonamide Antibiotics) Allergy (Verified 05/24/18 21:35) Rash tomato [Tomato] Allergy (Verified 01/22/18 09:14) Hives Medications to take at Discharge Albuterol Inhaler [Ventolin Hfa] 1 - 2 puff INHALATION Q4H PRN PRN #1 inhaler 01/22/18 Ferrous Sulfate [Iron] 325 mg PO DAILY 05/24/18 Vits [Prenatabs FA] 1 tablet PO DAILY 05/24/18 Propranolol HCl 10 mg PO PCHS PRN MDD 40mg 05/24/18 Docusate Sodium [Stool Softener] 100 mg PO 07/28/18 Ibuprofen [Motrin] 800 mg PO Q8H PRN 30 Days #30 tablet 07/31/18 Oxycodone HCl/Acetaminophen [Percocet 5/325] 1 tablet PO Q6H PRN PRN 7 Days #28 tablet 07/31/18 The following prescriptions were given: Oxycodone HCl/Acetaminophen [Percocet 5/325] 1 tablet PO Q6H PRN PRN 7 Days #28 tablet PRN Reason: Pain Ibuprofen [Motrin] 800 mg PO Q8H PRN 30 Days #30 tablet PRN Reason: Pain Follow-Up: Call to make an appointment with your doctor for an incision check in 1-2 weeks. You will also need a 6 week post- follow up appointment. Test results from this visit will be discussed in further detail at your follow- up appointment, if applicable. Please Follow Up With: Harika Rush DO When: 1 week for wound check and in 4-6 weeks for Primary Care Physician: Polly Torres DO [Primary Care Provider] -
[2018-07-31] MEDS: Docusate Sodium 100 MG Capsule PO (08:43)
--- NOTE | 2018-07-31 09:05 | NURSING ---
Back in to reassess the incision. still just a very small amount of serosanguineous drainage noted on the dressing. Pt states that Dr Rush was in to see her this am and wants dressing left in place until follow up visit early next week. pt states she is allowed to shower. pt does not currently have a water resistant dressing in place. would recommend one be applied if patient is going to shower. discussed possibility of skin breakdown or candidia infection if a wet dressing is left in place. Discussed this with the nurse as well. pt denies further needs. no sign of infection noted. incision is clean and dry.
--- NOTE | 2018-07-31 09:18 | NURSING ---
Dr Rush office called to clarify dressing care for patient discharge . awaiting call back
[2018-07-31 09:19] VITALS: BP 119/50; PULSE 99; RESP 20; TEMP 36.7; O2SAT 97
[2018-07-31] MEDS: Prenatal Vits Tablet 1 TABLET PO (11:16)
[2018-07-31] MEDS: Ferrous Sulfate 325 MG Tablet PO (11:16)
[2018-07-31 13:03] VITALS: BP 136/60; PULSE 99; RESP 18; TEMP 36.8; O2SAT 99
== END 2018-07-31 13:35 | disposition home or self-care (01) | DRG 540 ==
PROVIDERS: Admitting Provider Obstetrics & Gynecology; Family Provider Family Medicine; PCP Family Medicine; Referring Provider Obstetrics & Gynecology; Visit Provider Obstetrics & Gynecology
PROC: (CPT 59514; principal; 2018-07-28 07:15)
DX: O34.211 Maternal care for low transverse scar from previous cesarean delivery (principal); O32.1XX0 Maternal care for breech presentation, not applicable or unspecified; Z3A.39 39 weeks gestation of pregnancy; F12.90 Cannabis use, unspecified, uncomplicated; J45.909 Unspecified asthma, uncomplicated; O99.013 Anemia complicating pregnancy, third trimester; D64.9 Anemia, unspecified; Z37.0 Single live birth; Z30.2 Encounter for sterilization; Z87.891 Personal history of nicotine dependence
CPT/HCPCS: 85025; 85027; 86850; 86900; 88302; 94762; 99218; J7120; A4216; G0378; J2405

== ENCOUNTER 2018-08-06 11:45 | Outpatient (CLI) | payer MEDICAID, SELFPAY | END 2018-08-06 12:15 | disposition home or self-care (01) | LOC: WPOUT 11:48 → WP 11:49 | PROVIDERS: Family Provider Family Medicine; PCP Family Medicine; Referring Provider Obstetrics & Gynecology; Visit Provider Obstetrics & Gynecology | DX: Z39.1 Encounter for care and examination of lactating mother (principal) | CPT/HCPCS: 96152 ==

== ENCOUNTER 2018-12-24 09:30 | Emergency (ER) | payer MEDICAID, SELFPAY ==
[2018-12-24 09:31] VITALS: BP 137/73; PULSE 79; RESP 18; TEMP 36.6; O2SAT 98; BMI 48.3
--- NOTE | 2018-12-24 09:37 | RAD_ITS ---
STUDY: X-RAY - RIGHT SHOULDER REASON FOR EXAM: Pain, injury. TECHNIQUE: 4 view(s) of the shoulder. COMPARISON: None. FINDINGS: Normal glenohumeral articulation. Normal acromioclavicular joint. Normal acromion. Normal humeral head and visualized proximal humerus. There is calcific tendinitis. Normal visualized pulmonary apex. RAD/Shoulder min 2 Views IMPRESSION: Calcific tendinitis. Electronically Signed: Manny Kathleen MD at 10:29 EDT Tel , Service support ,
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
[2018-12-24] MEDS: Naproxen 500 MG Tablet PO (09:46)
[2018-12-24 10:24] VITALS: BP 126/74; PULSE 61; RESP 15; O2SAT 98
== END 2018-12-24 10:25 | disposition home or self-care (01) ==
LOC: ED 09:54
PROVIDERS: Emergency Provider Emergency Medicine; Family Provider Family Medicine; PCP Family Medicine
DX: M75.41 Impingement syndrome of right shoulder (principal); Z87.891 Personal history of nicotine dependence
CPT/HCPCS: 73030; 99283

== ENCOUNTER → 2018-12-30 13:45 | Outpatient (CLI) | payer MEDICAID, SELFPAY ==
[2018-12-24 09:31] VITALS: BMI 48.3
[2018-12-30 16:18] LABS: Free T3 2.6 pg/mL (2.18-3.98); Rheumatoid Factor < 10.0 IU/mL (<15); T4 Free Direct 0.88 ng/dL (0.76-1.46); Thyroid Stim Hormone (TSH) 1.42 uIU/mL (0.358-3.74)
[2018-12-30 16:20] LABS: Erythrocyte Sedimentation Rate 80 mm/hr (0-20)
[2019-01-01 16:15] LABS: ANTINUCLEAR ANTIBODIES DIRECT Negative (Negative)
[2019-01-04 13:01] LABS: CCP IgG Antibodies 5 units (0-19)
== END ==
PROVIDERS: Family Provider Family Medicine; PCP Family Medicine; Visit Provider Family Medicine
DX: M25.50 Pain in unspecified joint (principal); R53.83 Other fatigue; M79.10 Myalgia, unspecified site
CPT/HCPCS: 36415; 84439; 84443; 84481; 85652; 86038; 86140; 86200; 86225; 86235; 86431

== ENCOUNTER 2019-08-26 17:29 | Emergency (ER) | payer MEDICAID, SELFPAY ==
[2019-08-26 17:30] VITALS: BP 160/108; PULSE 86; RESP 15; TEMP 36.4; O2SAT 97; BMI 48.6
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
--- NOTE | 2019-08-26 17:56 | RAD_ITS ---
STUDY: X-RAY - LEFT ELBOW REASON FOR EXAM: Female, 34 years old. Pain TECHNIQUE: 3 view(s) of the elbow. COMPARISON: None. FINDINGS: There is no evidence of fracture or dislocation. There are no significant degenerative changes. There are no radiodense foreign bodies. RAD/Elbow min 3 Views IMPRESSION: No fracture or dislocation. Electronically Signed: Red Villagomez, at 18:23 EST Tel , Service support ,
[2019-08-26 19:32] VITALS: RESP 16
== END 2019-08-26 19:32 | disposition home or self-care (01) ==
LOC: ED 17:55
PROVIDERS: Emergency Provider Emergency Medicine; Family Provider Family Medicine; PCP Family Medicine
DX: S16.1XXA Strain of muscle, fascia and tendon at neck level, initial encounter (principal); S53.402A Unspecified sprain of left elbow, initial encounter; V43.52XA Car driver injured in collision with other type car in traffic accident, initial encounter; Y93.9 Activity, unspecified; Y92.481 Parking lot as the place of occurrence of the external cause; Y99.9 Unspecified external cause status
CPT/HCPCS: 73080; 99282

== ENCOUNTER 2019-09-30 21:08 | Emergency (ER) | payer MEDICAID, SELFPAY ==
[2019-09-30 21:09] VITALS: BP 136/70; PULSE 98; RESP 18; TEMP 36.8; O2SAT 98; BMI 52.7
--- NOTE | 2019-09-30 21:48 | EKG12_ITS ---
Test Reason : CP Blood Pressure : / mmHG Vent. Rate : 081 BPM Atrial Rate : 081 BPM P-R Int : 146 ms QRS Dur : 092 ms QT Int : 380 ms P-R-T Axes : 033 -02 027 degrees QTc Int : 441 ms Normal sinus rhythm with sinus arrhythmia Normal ECG Confirmed by CHANDA HOGAN ([id number]), editor news KULDIP REGAN ([id number]) on 10/05/2019 2:57:02 PM Referred By: LAZARO Confirmed By:CHANDA HOGAN
--- NOTE | 2019-09-30 21:49 | ED.VIS.GEN ---
History of Present Illness Chief Complaint: Chest Pain Detail of Chief Complaint: Abdominal pain radiating into chest Informant: Patient Onset: Yesterday Current Severity: Mild Maximum Severity: Moderate Narrative: Patient presents with chest pain, palpitations, cough, abdominal pain. She states she had an abdominal hernia for the past year. Her pain worsened yesterday and she feels like pain shoots up into her chest. She has had symptoms consistent with reflux. She does not take antacid medication a regular basis. She denies having fever but has noted chills. She reports episodes of feeling like her heart is racing and she has developed cough and congestion as well. - Past Medical History (1) History of delivery Status: Resolved Past Medical History - Allergies and Home Meds Allergies/Adverse Reactions: Allergies sertraline HCl [From Zoloft] Allergy (Verified 09/30/19 21:10) Rash Sulfa (Sulfonamide Antibiotics) Allergy (Verified 09/30/19 21:10) Rash tomato [Tomato] Allergy (Verified 09/30/19 21:10) Hives Primary Care Physician: Polly Torres DO [Primary Care Provider] - Prior records reviewed: Yes Surgical History: - - Lives: With Family Smoking Status: Former smoker Review of Systems General: Reports: Chills. Denies: Fever Eyes: Denies: Visual changes - bilaterally ENT: Denies: Bilateral ear pain Cardiovascular: Reports: Chest pain Respiratory: Reports: Cough Gastrointestinal: Reports: Abdominal pain, - - Reflux. Denies: Vomiting Genitourinary: Denies: Dysuria Skin: Denies: Rash Neurological: Denies: Headache Hematologic: Denies: Easy bruising Allergy: Denies: Uticaria Physical Exam Vital Signs/Narrative: Vital Signs Temp Pulse Resp BP Pulse Ox 09/30/19 21:09 98.3 F 98 18 136/70 H 98 Inital Vital Signs reviewed: Yes General: Well nourished, Well developed Head: Normocephalic ENT: Moist mucous membranes Neck: Supple Cardiovascular: Regular rate, Regular rhythm Respiratory: No distress, CTA bilaterally Abdomen: Soft, Normal bowel sounds, Tender - Epigastric tenderness palpation.. Negative for: Guarding, Rebound tenderness Extremities: Nontender Skin: Normal color Neurological: Alert, Oriented x3 Psychological: Normal affect Diagnostic/Tx/Re-eval Impressions Chest X-Ray 09/30/19 21:53 IMPRESSION: Normal x-ray examination of the chest. Electronically Signed: Kody Cerrato MD at 22:16 EST , Service support , 09/30/19 21:53 Chest 1 View (Portable) [RAD] Stat Laboratory Results 09/30/19 09/30/19 22:10 22:10 WBC 8.0 RBC 4.48 Hgb 12.8 Hct 39.8 MCV 88.8 MCH 28.6 MCHC 32.2 RDW Std Deviation 41.6 RDW Coeff of Govind 12.9 Plt Count 300 MPV 9.5 Immature Gran % (Auto) 0.300 Neut % (Auto) 58.7 Lymph % (Auto) 32.9 [place] % (Auto) 6.4 Eos % (Auto) 1.3 Baso % (Auto) 0.4 Absolute Neuts (auto) 4.7 Absolute Lymphs (auto) 2.62 Nucleated RBC % 0 Sodium 140 Potassium 4.1 Chloride 106 Carbon Dioxide 29.0 Anion Gap 5 BUN 13 Creatinine 0.86 Estim Creat Clear Calc 92.98 Est GFR (MDRD) Af Amer 97 Est GFR (MDRD) Non-Af 80 BUN/Creatinine Ratio 15.1 Glucose 113 H Calcium 8.8 Total Bilirubin 0.20 Direct Bilirubin 0.09 AST 35 ALT 38 Alkaline Phosphatase 63 Troponin I < 0.015 Total Protein 7.9 Albumin 3.4 Globulin 4.5 H Lipase 57 L - Medical Decision Making Patient was given morphine and Zofran for pain. On repeat evaluation she is sleeping comfortably. Test results are discussed with her. My suspicion is that she is having acid reflux potentially causing some esophageal spasm. She will be started on Prilosec. ED Disposition - Plan for ED Patient: Disposition: Home or Assisted Living Diagnosis: Atypical chest pain, GERD (gastroesophageal reflux disease) Instructions: CHEST PAIN, NonCardiac, GERD (Adult) Prescriptions: Omeprazole [Prilosec] 20 mg PO DAILY #30 cap Transmission Status: Pending to [facility] #30 Referrals: Polly Torres DO [Primary Care Provider] - 1 Week
--- NOTE | 2019-09-30 21:53 | RAD_ITS ---
STUDY: X-RAY CHEST REASON FOR EXAM: Female, 34 years old. COUGH, CHEST PAIN, PALPITATIONS TECHNIQUE: Frontal view COMPARISON: 10/31/2010 FINDINGS: The lungs are clear and expanded. There is no demonstrated pleural abnormality. Normal size heart. Normal mediastinum and clover. Normal visualized pulmonary arteries. Normal visualized aortic arch and descending thoracic aorta. Normal visualized thoracic spine. Normal visualized ribs, clavicles, and shoulders. There is no demonstrated abnormality of the visualized soft tissue structures of the upper abdomen. RAD/Chest 1 View (Portable) IMPRESSION: Normal x-ray examination of the chest. Electronically Signed: Kody Cerrato MD at 22:16 EST , Service support ,
[2019-09-30] MEDS: Morphine 4 MG/ML Syringe IV (22:07)
[2019-09-30] MEDS: 0.9% Normal Saline 1,000 ML 150 ML IV (22:07)
[2019-09-30] MEDS: Ondansetron 4 MG/2 ML Vial IV (22:07)
[2019-09-30 22:14] VITALS: BP 109/66; PULSE 71; RESP 14; O2SAT 96
[2019-09-30 22:27] LABS: Absolute Lymphocyte Count 2.62 X10^3/uL (0.83-4.51); Absolute Neutrophil Count 4.7 X10^3/uL (2.0-7.7); Basophil# 0.03 X10^3/uL; Basophil% 0.4 % (0-1); Eosinophils% 1.3 % (0-5); Hematocrit 39.8 % (37-47); Hemoglobin 12.8 g/dL (12.0-15.0); Lymphocyte # 2.62 X10^3/ul (4.0); Lymphocyte % 32.9 % (19-41); Mean Corp Hgb Conc 32.2 g/dL (32-36); Mean Corpuscular Hgb 28.6 pg (27.0-32.0); Mean Corpuscular Volume 88.8 fL (81-99); Mean Platelet Vol. 9.5 fl (6.2-12.0); Monocyte# 0.51 X10^3/uL; Monocyte% 6.4 % (0-10); NRBC Flagged by Analyzer 0 % (0-5); Neutrophil # 4.69 X10^3/uL (2.7-7.7); Neutrophil % 58.7 % (47-70); Platelet Count 300 K/mm3 (150-450); RBC Distribution Width CV 12.9 % (11.6-14.6); RBC Distribution Width SD 41.6 fl (35.1-43.9); Red Blood Count 4.48 M/mm3 (4.2-5.4)
[2019-09-30 22:42] LABS: AST(SGOT) 35 U/L (15-37); Alanine Aminotransfer ALT/SGPT 38 U/L (13-56); Albumin, Serum 3.4 g/dL (3.2-5.0); Alkaline Phosphatase 63 U/L (45-117); Anion Gap 5 (5-15); BUN 13 mg/dL (7-18); BUN/Creat Ratio 15.1 RATIO (10-20); Bilirubin, Direct 0.09 mg/dL (0.00-0.30); Calcium,Total 8.8 mg/dL (8.5-10.1); Chloride 106 mmol/L (98-107); Creatinine, Serum 0.86 mg/dL (0.55-1.02); EST Glomerular Filtration Rate 80 mL/min (>60); Est Glom Filt Rate - Afr Amer 97 mL/min (>60); Estimated Creatinine Clearance 92.98 ml/min; Globulin 4.5 g/dL (2.2-4.2); Glucose 113 mg/dL (74-106); Lipase 57 U/L (73-393); Potassium 4.1 mmol/L (3.5-5.1); Protein, Total 7.9 g/dL (6.4-8.2); Sodium Level 140 mmol/L (136-145)
[2019-10-01] MEDS: Famotidine 20 MG Tablet 40 MG PO (00:15)
[2019-10-01 00:17] VITALS: BP 112/90; PULSE 78; RESP 15; O2SAT 99
== END 2019-10-01 00:19 | disposition home or self-care (01) ==
PROVIDERS: Emergency Provider Emergency Medicine; Family Provider Family Medicine; PCP Family Medicine
DX: R07.89 Other chest pain (principal); K21.9 Gastro-esophageal reflux disease without esophagitis; Z87.891 Personal history of nicotine dependence
CPT/HCPCS: 71045; 80048; 80076; 83690; 84484; 85025; 93005; 96361; 96374; 96375; 99284; J7030; A4216; J2405

== ENCOUNTER 2020-03-22 09:34 | Emergency (ER) | payer MEDICAID, SELFPAY ==
[2020-03-22 09:36] VITALS: BP 131/72; PULSE 84; RESP 17; TEMP 36.3; O2SAT 97; BMI 50.8
--- NOTE | 2020-03-22 09:57 | RAD_ITS ---
STUDY: X-RAY CHEST REASON FOR EXAM: Female, 34 years old. Cough, SOB -- loss of taste and smell TECHNIQUE: PA and lateral views of the chest. COMPARISON: Comparison is made with prior study dated September 30, 2019. FINDINGS: The lungs are clear and expanded. There is no demonstrated pleural abnormality. Normal size heart. Normal mediastinum and clover. Normal visualized pulmonary arteries. Normal visualized aortic arch and descending thoracic aorta. Normal visualized thoracic spine. Normal visualized ribs, clavicles, and shoulders. There is no demonstrated abnormality of the visualized soft tissue structures of the upper abdomen. RAD/Chest PA and Lateral IMPRESSION: Normal x-ray examination of the chest. Electronically Signed: Aron Chilel, at 11:08 EDT , Service support ,
--- NOTE | 2020-03-22 10:02 | ED.DCSUM_ITS ---
History of Present Illness Chief Complaint: Shortness of Breath Informant: Patient Current Severity: Moderate Maximum Severity: Moderate Narrative: Patient presents with cough and shortness of breath for the past few days she has no fever or chills she does have slightly productive cough with some dark yellow mucus. She has no sick contacts, she has a history of asthma and this feels similar. She denies abdominal pain other than her chronic umbilical hernia pain. She has no back pain or chest pain she has no pleuritic component she has no leg pain or calf pain she has no lower extremity edema. She denies any sick contacts. Past Medical History - Allergies and Home Meds Allergies/Adverse Reactions: Allergies sertraline HCl [From Zoloft] Allergy (Verified 03/22/20 09:35) Rash Sulfa (Sulfonamide Antibiotics) Allergy (Verified 03/22/20 09:35) Rash tomato [Tomato] Allergy (Verified 03/22/20 09:35) Hives Primary Care Physician: Polly Torres DO [Primary Care Provider] - Past Medical History: - - Asthma, irregular menstrual cycles, has tubal ligation and denies Surgical History: - - , tubal ligation Smoking Status: Current some day smoker Review of Systems All systems negative except as indicated General: Denies: Chills, Fever ENT: Denies: Rhinorrhea, Sore throat Cardiovascular: Denies: Chest pain, Palpitations Respiratory: Reports: Dyspnea, Cough, Sputum Gastrointestinal: Reports: Abdominal pain. Denies: Nausea, Vomiting Genitourinary: Denies: Dysuria Musculoskeletal: Denies: Myalgias, Arthralgias, Neck pain, Back pain, Extremity Pain Skin: Denies: Rash Neurological: Reports: Headache, - - She does endorse a slight headache. This was gradual in onset, it started after her shortness of breath. It is worse with cough. Denies: Weakness Psych: Denies: Depression, Anxiety Endocrine: Denies: Polyuria Hematologic: Denies: Easy bruising Physical Exam Vital Signs/Narrative: Vital Signs Temp Pulse Resp BP Pulse Ox 03/22/20 09:36 97.4 F L 84 17 131/72 H 97 Diagnostic/Tx/Re-eval Chest X-Ray - ED: 2 View, Read by ED Physician, Read by Radiologist, Normal, Heart, Lungs, Mediastinum, No Acute Disease - Medical Decision Making Patient has an unremarkable work-up, DuoNeb significantly improved her symptoms. I will discharge her with symptomatic treatment and she did have productive yellowish-green sputum I will treat with antibiotics. ED Disposition - Plan for ED Patient: Disposition: Home or Assisted Living Diagnosis: Asthma, Bronchitis Instructions: ED REACTIVE AIRWAY DISEASE Adult, ED Upper Resp Infec Abx Tx Prescriptions: Azithromycin 250 mg PO DAILY #6 tab Transmission Status: Pending to [email or web address] #30 Albuterol IH (ProAir) [Proair Hfa (SP)Vent Pts] 1 puff INHALATION Q4H PRN PRN #1 inhaler PRN Reason: Sob &/Or Wheezing Transmission Status: Pending to [email or web address] #30 Referrals: Polly Torres DO [Primary Care Provider] - 3-5 Days
[2020-03-22] MEDS: Acetaminophen 500 MG Tablet 1000 MG PO (10:17)
[2020-03-22] MEDS: Ipratropium/Albuterol Sulfate 3 ML AMPUL.NEB INHALATION (10:22)
[2020-03-22 10:23] VITALS: BP 131/72; PULSE 84; RESP 17; TEMP 36.3; O2SAT 97
[2020-03-22 10:37] LABS: Absolute Lymphocyte Count 1.87 X10^3/uL (0.83-4.51); Absolute Neutrophil Count 4.2 X10^3/uL (2.0-7.7); Basophil# 0.03 X10^3/uL; Basophil% 0.4 % (0-1); Eosinophil# 0.18 X10^3/uL; Eosinophils% 2.7 % (0-5); Hematocrit 42.7 % (37-47); Hemoglobin 13.6 g/dL (12.0-15.0); Lymphocyte # 1.87 X10^3/ul (4.0); Lymphocyte % 27.6 % (19-41); Mean Corp Hgb Conc 31.9 g/dL (32-36); Mean Corpuscular Hgb 29.2 pg (27.0-32.0); Mean Corpuscular Volume 91.6 fL (81-99); Mean Platelet Vol. 9.4 fl (6.2-12.0); Monocyte# 0.47 X10^3/uL; Monocyte% 6.9 % (0-10); NRBC Flagged by Analyzer 0 % (0-5); Neutrophil # 4.19 X10^3/uL (2.7-7.7); Platelet Count 302 K/mm3 (150-450); RBC Distribution Width CV 12.7 % (11.6-14.6); Red Blood Count 4.66 M/mm3 (4.2-5.4); White Blood Count 6.8 K/mm3 (4.4-11.0)
[2020-03-22 10:50] LABS: ALB/GLOB Ratio 0.6 RATIO (0.9-2.4); AST(SGOT) 53 U/L (15-37); Alanine Aminotransfer ALT/SGPT 52 U/L (13-56); Albumin, Serum 3.3 g/dL (3.2-5.0); Alkaline Phosphatase 60 U/L (45-117); Anion Gap 5 (5-15); BUN 11 mg/dL (7-18); BUN/Creat Ratio 15.8 RATIO (10-20); Calcium,Total 8.9 mg/dL (8.5-10.1); Chloride 105 mmol/L (98-107); EST Glomerular Filtration Rate 102 mL/min (>60); Est Glom Filt Rate - Afr Amer 123 mL/min (>60); Estimated Creatinine Clearance 118.35 ml/min; Globulin 5.2 g/dL (2.2-4.2); Glucose 114 mg/dL (74-106); Potassium 4.1 mmol/L (3.5-5.1); Protein, Total 8.5 g/dL (6.4-8.2); Sodium Level 139 mmol/L (136-145)
[2020-03-22 10:51] VITALS: PULSE 85; RESP 18
[2020-03-22 11:00] VITALS: BP 129/68; PULSE 83; RESP 18; TEMP 36.4; O2SAT 97
[2020-03-22 11:44] VITALS: BP 134/77; PULSE 68; RESP 15; O2SAT 98
== END 2020-03-22 11:51 | disposition home or self-care (01) ==
PROVIDERS: Emergency Provider Emergency Medicine; PCP Family Medicine
DX: J45.909 Unspecified asthma, uncomplicated (principal); F17.200 Nicotine dependence, unspecified, uncomplicated; Z79.51 Long term (current) use of inhaled steroids
CPT/HCPCS: 71046; 80053; 84484; 85025; 94640; 99284; A4216

== ENCOUNTER 2020-04-23 22:05 | Emergency (ER) | payer MEDICAID, SELFPAY ==
[2020-04-23 22:07] VITALS: BP 142/91; PULSE 89; RESP 15; TEMP 36.8; O2SAT 96; BMI 53.8
--- NOTE | 2020-05-13 06:40 | ED.VIS.GEN ---
History of Present Illness Chief Complaint: Abd Pain Informant: Patient Narrative: Presents with abdominal pain. She has a abdominal hernia that she has been unable to reduce therefore came in for further evaluation. Current severity is mild to moderate. He has had this hernia for some time. - Past Medical History (1) False labor Status: Acute (2) History of delivery Status: Resolved Past Medical History - Allergies and Home Meds Allergies/Adverse Reactions: Allergies sertraline HCl [From Zoloft] Allergy (Verified 04/23/20 22:10) Rash Sulfa (Sulfonamide Antibiotics) Allergy (Verified 04/23/20 22:10) Rash tomato [Tomato] Allergy (Verified 04/23/20 22:10) Hives Primary Care Physician: Darryl Mclaughlin MD [STAFF PHYSICIAN] - Prior records reviewed: Yes Past Medical History: - - See problem list Surgical History: - - , tubal ligation Lives: With Family Smoking Status: Current every day smoker Alcohol: None Drugs: None Review of Systems General: Denies: Chills, Fever, Sweats Eyes: Denies: Visual changes - bilaterally, Diplopia ENT: Denies: Rhinorrhea, Sore throat Cardiovascular: Denies: Chest pain, Palpitations Respiratory: Denies: Dyspnea, Cough, Dyspnea on exertion Gastrointestinal: Reports: Abdominal pain. Denies: Nausea, Vomiting, Diarrhea, Melena, Hematochezia Genitourinary: Denies: Dysuria, Hematuria, Frequency Musculoskeletal: Denies: Back pain, Extremity Pain Skin: Denies: Rash, Wounds Neurological: Denies: Headache, Weakness, Numbness Physical Exam General: Well nourished, Well developed, No Acute Distress Head: Normocephalic, Atraumatic Eyes: Perrl, EOMI ENT: Moist mucous membranes, No rhinorrhea Neck: Supple, Nontender Cardiovascular: Regular rate, Regular rhythm, No murmurs Respiratory: No distress, CTA bilaterally, Chest nontender Abdomen: Soft, Nondistended, Normal bowel sounds, Tender - She has a tender abdominal wall hernia Back: Nontender, Normal Inspection Extremities: Nontender, No edema Skin: Normal color, No rash Neurological: Alert, Oriented x3, Cranial nerves II-XII grossly intact, Normal Strength, Normal Sensation Psychological: Normal affect, Normal Mood Diagnostic/Tx/Re-eval - Medical Decision Making Hernia was easily reduced with circular mild pressure. There is no signs of strangulation or incarceration and will follow-up with general surgery ED Disposition - Plan for ED Patient: Disposition: Home or Assisted Living Diagnosis: Umbilical hernia Instructions: What Is a Hernia? Referrals: Darryl Mclaughlin MD [STAFF PHYSICIAN] -
== END 2020-04-23 22:32 | disposition home or self-care (01) ==
LOC: ED 22:23
PROVIDERS: Emergency Provider Emergency Medicine; PCP Family Medicine
DX: K42.9 Umbilical hernia without obstruction or gangrene (principal); F17.200 Nicotine dependence, unspecified, uncomplicated
CPT/HCPCS: 99282

== ENCOUNTER 2020-05-29 09:41 | Emergency (ER) | payer MEDICAID, SELFPAY ==
[2020-05-29 09:42] VITALS: BP 149/97; PULSE 96; RESP 17; TEMP 36.3; O2SAT 93; BMI 53.4
[2020-05-29 10:09] VITALS: BP 149/97; PULSE 96; RESP 17; TEMP 36.3; O2SAT 93
--- NOTE | 2020-05-29 10:38 | ED.VISSUMM ---
- ER Visit Summary Date of Service: 05/29/20 Chief Complaint: Draining from umbilicus History of Present Illness: The patient is a [address] Tipton and on May 22 had a hernia repair by Dr. Mclaughlin. She reports that due to COVID-19 the follow-up was to be by phone and she does not have a follow-up as scheduled. She reports that she has abdominal pain that is 9-10 at worst and 5 out of 10 currently. Is increased with movement. She had nausea with no vomiting. No diarrhea. Her last bowel was yesterday. She denies any other complaints. Physical Examination: Vitals: Stable. Afebrile. General: Well-nourished and well-developed. Head: Normocephalic atraumatic. Neck: Supple, no lymphadenopathy. No JVD. Nontender. Cardiovascular: Regular rate and rhythm. No murmurs. Respiratory: No respiratory distress. Clear to auscultation bilaterally. Abdominal: Soft, mild periumbilical tenderness, nondistended, normal bowel sounds. No guarding, rebound, or peritoneal signs. Incision just inferior to the umbilicus is clean, dry, intact. There is Dermabond in place. There is no surrounding erythema, induration, or fluctuance. She does have a small amount of serosanguineous drainage from her umbilicus. There is no induration or fluctuance surrounding this. Back: Nontender. Extremities: Nontender, no edema. Skin: Normal color, no rash. Neurologic: Alert and oriented ?3. Cranial nerves II through XII are intact. Normal strength and sensation. Psych: Normal affect. Emergency Department Course and Treatment: Patient had an ABD placed. She is resting comfortably. Treatment Plan: The patient was discussed with Dr. Brown. He will follow-up with her in the office tomorrow for another exam. Return to the emergency department for any worsening symptoms. Disposition: To home in improved and stable condition. Impression: 1. 1 week status post hernia repair. 2. Drainage from umbilicus. This note was generated with [employer] Accessation software. It may contain incorrect words, spelling, and punctuation that were not noted in review of the chart prior to signing ED Disposition - Plan for ED Patient: Instructions: ED Wound Check Post Op Bleeding Referrals: Darryl Mclaughlin MD [STAFF PHYSICIAN] - 1 Day for another exam
[2020-05-29 11:15] VITALS: BP 108/72; RESP 16
== END 2020-05-29 11:33 | disposition home or self-care (01) ==
LOC: ED 11:28
PROVIDERS: Emergency Provider Emergency Medicine; PCP Family Medicine
DX: R68.89 Other general symptoms and signs (principal); Z98.890 Other specified postprocedural states; J45.909 Unspecified asthma, uncomplicated; F90.9 Attention-deficit hyperactivity disorder, unspecified type; F17.290 Nicotine dependence, other tobacco product, uncomplicated; Z79.51 Long term (current) use of inhaled steroids; Z79.899 Other long term (current) drug therapy
CPT/HCPCS: 99282

== ENCOUNTER → 2020-07-24 | Outpatient (CLI) | payer MEDICAID, SELFPAY | END | disposition home or self-care (01) | LOC: MTDU 17:51 | PROVIDERS: PCP Family Medicine; Referring Provider Family Medicine; Visit Provider Family Medicine | DX: Z20.828 Contact with and (suspected) exposure to other viral communicable diseases (principal) | CPT/HCPCS: 87635; C9803; U0003 ==

== ENCOUNTER → 2020-11-20 16:08 | Outpatient (CLI) | payer MEDICAID, SELFPAY ==
--- NOTE | 2020-11-20 16:15 | RAD_ITS ---
STUDY: X-RAY - LUMBAR SPINE REASON FOR EXAM: Female, 35 years old. CHRONIC LOW BACK PAIN. LUMBAR STRAIN. TECHNIQUE: 5 view(s) of the lumbar spine were obtained. COMPARISON: None FINDINGS: There is straightening of the normal lumbar lordosis. Normal vertebral bodies and endplates. Normal disc space heights. The soft tissue structures are unremarkable. RAD/L/S Spine Min 4 Views IMPRESSION: There is straightening of the normal lumbar lordosis. Electronically Signed: Shyanne Almanzar MD at 8:21 EST Tel , Service support ,
== END ==
PROVIDERS: PCP Family Medicine; Referring Provider Chiropractor; Visit Provider Chiropractor
DX: S33.5XXA Sprain of ligaments of lumbar spine, initial encounter (principal)
CPT/HCPCS: 72110

== ENCOUNTER 2021-05-14 16:21 | Outpatient (RCR) | payer MEDICAID, SELFPAY ==
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
--- NOTE | 2021-08-06 07:17 | HP.PT.NRP ---
DARSHAN MANCERA was seen in my office for initial evaluation on 05/14/21. The following Plan of Care was established for this patient: Initial Frequency: 2x /Week Initial Duration: 4 Weeks Patient/Client Instruction: Educate patient on: Benefits of Fitness Program Therapeutic Exercise to Include: Strength training, Endurance training, Body mechanics, Postural training, Neuromotor development, In an aquatic setting, Active ROM, Dynamic Lumbar Stabilization, Scapular Strength/Stabilization For the Purpose of:: To improve muscle performance and motor function This patient was last seen in our office . Pertinent comments regarding their Physical therapy will appear below: Patient has not attended PT in over 4 weeks and is appropriate for discharge- return to MD for further evaluation as needed. At this point I will be discontinuing this patient from physical therapy. I would be happy to see this patient again in the future if found appropriate by the physician. Thank you! Sarah Nolan, SHAKE[place]T Balance/Gait/Functional tests - Balance/Special Test Scores Quick DASH Score: 72.7262
== END 2021-05-14 19:00 | disposition home or self-care (01) ==
LOC: PT 16:21
PROVIDERS: PCP Family Medicine; Referring Provider Family Medicine; Visit Provider Family Medicine
DX: S40.011D Contusion of right shoulder, subsequent encounter (principal)
CPT/HCPCS: 97162

== ENCOUNTER 2021-10-04 17:09 | Emergency (ER) | payer MEDICAID, SELFPAY ==
[2021-10-04 17:09] VITALS: BP 142/77; PULSE 100; RESP 18; TEMP 37; BMI 54.7
--- NOTE | 2021-10-04 17:29 | EDS_ITS ---
HPI HPI - URI History of Present Illness Chief Complaint: Shortness of Breath Narrative Narrative: 36-year-old female presenting with cough, fever, chills, body aches. She is lost taste and smell today. She states symptoms onset was 3 days ago. He is not vaccinated for COVID-19. She states she does not have any nausea or vomiting. She is eating and drinking normally. She make normal urine and stool. ROS ROS ED Constitutional Constitutional ED: Reports chills and fever(s) Eyes Eyes: Denies blurry vision or diplopia ENT ENT ED: Denies rhinorrhea or sore throat Cardiovascular Cardiovascular: Denies chest pain or palpitations Respiratory/Chest Respiratory/Chest: Reports cough and dyspnea Gastrointestinal Gastrointestinal: Denies abdominal pain, nausea or vomiting Genitourinary Genitourinary ED: Denies dysuria or hematuria Musculoskeletal Musculoskeletal: Reports myalgias; Denies arthralgias or neck pain Integumentary Denies abscess or rash Neurologic Neurologic: Denies headache(s) or paresthesias Psychiatric Psychiatric: Denies anxiety or depression PFSH PFSH Medical History ADHD Anemia Asthma Depression Heart palpitations Marijuana use Obesity affecting Tobacco use Home Medications dextroamphetamine-amphetamine 10 mg PO DAILY 04/23/20 [History Last Taken Unk nown] Allergy/AdvReac Type Severity Reaction Status Date / Time sertraline HCl [From Zoloft] Allergy Rash Verified 10/04/21 17:11 Sulfa (Sulfonamide Allergy Rash Verified 10/04/21 17:11 Antibiotics) tomato [Tomato] Allergy Hives Verified 10/04/21 17:11 Social History Smoking Status: Unknown if ever smoked EXAM Physical Exam Const Vital Signs: 10/04/21 17:09 10/04/21 17:32 Temperature 98.6 F Temperature Source Temporal Pulse Rate 100 Respiratory Rate 18 Respiratory Effort Normal Non-Labored Respiratory Depth Normal Respiratory Pattern Normal Blood Pressure 142/77 H Blood Pressure Mean 98 Oxygen Delivery Method Room Air Positive well nourished General Appearance ED: NAD; Negative for pallor HEENT Reports moist mucous membranes normocephalic and atraumatic Eyes PERRL and EOMs intact bilaterally Neck no lymphadenopathy, supple and no meningeal signs Resp normal respiratory effort and clear to auscultation bilaterally Cardio Rate: regular rate Rhythm: regular rhythm GI non-tender Palpation: soft Extremity normal to inspection; Negative for full ROM General Extremety ED: Negative for cyanosis General Extremity: Negative for cyanosis Neuro oriented x3 Sensorium / Orientation: alert Psych mental status grossly normal Skin General Skin Exam: Negative for jaundice or pallor Rashes: no rashes MDM MDM MDM Narrative Medical decision making narrative: Patient presented with mild viral symptoms and she is concerned she has COVID-19. She wishes to be tested but wishes to go home and wait for the results there. Given her normal vital signs I feel this is reasonable. I will send for a Covid test. Patient is given return precautions. If she is positive she does wish to have the monoclonal antibodies and I will sign her up for this. Impression: 1. Viral syndrome Discharge Plan Triage Chief Complaint: Shortness of Breath ED Provider: Zac Arango Dx/Rx/DC Orders Instructions: Coronavirus Disease 2019 (COVID-19): Caring for Yourself or Others Prescriptions: No Action dextroamphetamine-amphetamine 10 MG tablet 10 mg PO DAILY RF: 0 Primary Care Provider: Polly Torres Referrals: Polly Torres DO [Primary Care Provider] - Disposition Disposition: Home, Self Care Discharge Date/Time: 10/04/21 17:38
== END 2021-10-04 17:38 | disposition home or self-care (01) ==
PROVIDERS: Emergency Provider Student in an Organized Health Care Education/Training Program; PCP Family Medicine
DX: B34.9 Viral infection, unspecified (principal); Z20.822 Contact with and (suspected) exposure to COVID-19; J45.909 Unspecified asthma, uncomplicated; F90.9 Attention-deficit hyperactivity disorder, unspecified type; F32.A Depression, unspecified; Z79.899 Other long term (current) drug therapy
CPT/HCPCS: 87426; 99282

== ENCOUNTER 2022-04-09 15:11 | Emergency (ER) | payer MEDICAID, SELFPAY ==
[2022-04-09 15:12] VITALS: BP 141/86; PULSE 83; RESP 16; TEMP 36.1; O2SAT 95; BMI 53.1
--- NOTE | 2022-04-09 15:43 | EDS_ITS ---
HPI History of Present Illness Chief Complaint: Abscess Detail of Chief Complaint: Concern for abscess left breast and right breast Informant: patient Onset/Context/Timing Onset: Weeks (1.5 weeks ago noted left breast past several days right breast) Context: Sudden Onset Timing: Continuous Quality: Left breast is painful with erythema and patient states she expressed blood Location: Left breast with painful and red and nonpainful lump right breast Current Severity: Mild Maximum Severity: Severe Worsened by: Wall, palpation left breast Relieved by: Nothing Associated Symptoms Associated Symptoms: No constitutional symptoms no endocrine symptoms Narrative Narrative: Patient is a 36-year-old female with history of ADHD who presents with painful left breast nipple that started 1.5 weeks ago. She states this feels different than when her ducts were obstructed when she breast-fed. There is no complaint of fever or chills. She denies weight loss. There is no family history of breast cancer. There is no history of trauma. She states she expressed bloody colored material from the left nipple. She is also concerned that she feels a nodule on the right side. There is no drainage from the right side. Prior similar symptoms: No Recent Illness/Hospitalization: No PFSH PFSH Medical History ADHD Anemia Asthma Depression Heart palpitations Marijuana use Obesity affecting Tobacco use Home Medications dextroamphetamine-amphetamine 10 mg tablet 10 mg PO DAILY 04/23/20 [History Last Taken Unknown] doxycycline monohydrate 100 mg capsule 100 mg PO BID #14 CAPSULES 04/09/22 [Rx Last Taken Unknown] Allergy/AdvReac Type Severity Reaction Status Date / Time sertraline HCl [From Zoloft] Allergy Rash Verified 04/09/22 15:16 Sulfa (Sulfonamide Allergy Rash Verified 04/09/22 15:16 Antibiotics) tomato [Tomato] Allergy Hives Verified 04/09/22 15:16 Family History no significant family his no significant family history (There is no family history of breast cancer.) Social History (Updated 04/09/22 @ 15:[address] Buzz Bravo MD) household members: children Smoking Status: Unknown if ever smoked alcohol intake: current substance use type: marijuana ROS ROS ED Constitutional Constitutional ED: Denies chills, fever(s), subjective, sweats or weight loss Cardiovascular Cardiovascular: Denies chest pain, orthopnea, palpitations or racing heartbeat Respiratory/Chest Respiratory/Chest: Denies cough, dyspnea, dyspnea on exertion or orthopnea Gastrointestinal Gastrointestinal: Denies diarrhea, melena, nausea or vomiting Integumentary Reports abscess and rash Neurologic Neurologic: Denies headache(s), paresthesias or weakness Psychiatric Psychiatric: Denies anxiety or depression Endocrine Endocrinology: Denies polydipsia, polyphagia or polyuria Hematologic/Lymphatic Hematologic/Lymphatic: Reports anemia; Denies easy bleeding, easy bruising or lymphadenopathy EXAM Physical Exam Const Vital Signs: 04/09/22 15:12 Temperature 97.0 F L Temperature Source Temporal Pulse Rate 83 Respiratory Rate 16 Blood Pressure 141/86 H Blood Pressure Mean 104 Pulse Ox 95 Oxygen Delivery Method Room Air Positive well nourished, well developed and obese; Negative for cachectic, contractures or unkempt General Appearance ED: well developed and NAD; Negative for unkempt, cachectic, contractures, cyanotic, diaphoretic or pallor Nutritional Appearance: obese; Negative for cachectic HEENT Reports moist mucous membranes HEENT Narrative: Nares patent. Ears normal. Mucosa moist. Uvula midline. There is no erythema exudate the posterior pharynx. Negative for trauma or tenderness Eyes PERRL and EOMs intact bilaterally General Eye ED: Negative for pale conjunctiva or scleral icterus Neck no lymphadenopathy, supple and no JVD Chest Wall Chest Narrative: Patient has erythema of the left areola. The nipple is slightly dimpled in. There is no fluctuance. There is slight warmth. There is no induration. There is no lymphadenopathy. There is no lymphangitis. There is a nodule the size about chickpea inferior outer quadrant of the areola on the right. There is no erythema, warmth, induration or fluctuance. It is firm and smooth. It is mobile. Resp normal respiratory effort and clear to auscultation bilaterally Cardio regular rate, regular rhythm, S1 normal heart sound, S2 normal heart sound and no murmurs GI normal to inspection, nondistended, normoactive bowel sounds, non-tender and non-distended; Negative for hepatosplenomegaly Neuro oriented x3, CN's II-XII intact bilaterally and no sensory deficits noted Sensorium / Orientation: alert Motor Exam: strength 5/5 throughout Psych mental status grossly normal Appearance: Negative for unkempt Skin no wounds and skin turgor normal Skin Narrative: There is erythema of the areola on the left. General Skin Exam: Negative for jaundice or pallor MDM MDM MDM Narrative Medical decision making narrative: Case was discussed with Dr. Andrea giron. He will see patient in follow-up. He does agree with mammogram and ultrasound. Patient will also receive antibiotics. Of note she is allergic to sulfa. Will place on Doxy safe splint which will cover streptococcal and staphylococcal organisms. Lab Data Attestation: I reviewed the patient's lab results. Lab results narrative: White count and differential normal. Basic metabolic panel is normal. Patient was treated with doxycycline. She was discharged home with orders for mammogram and ultrasound. She is to call Dr. Giron's office Labs: Laboratory Results - last 24 hr 04/09/22 04/09/22 16:06 16:06 WBC 8.9 RBC 4.66 Hgb 13.6 Hct 41.4 MCV 88.8 MCH 29.2 MCHC 32.9 RDW Std Deviation 42.1 RDW Coeff of Govind 13.1 Plt Count 313 MPV 10.0 Immature Gran % (Auto) 0.300 Neut % (Auto) 63.5 Lymph % (Auto) 29.9 Willacy % (Auto) 5.4 Eos % (Auto) 0.6 Baso % (Auto) 0.3 Absolute Neuts (auto) 5.6 Absolute Lymphs (auto) 2.66 Nucleated RBC % 0 Sodium 138 Potassium 4.4 Chloride 105 Carbon Dioxide 26.0 Anion Gap 7 BUN 9 Creatinine 0.68 Estim Creat Clear Calc 115.37 Est GFR (MDRD) Af Amer 126 Est GFR (MDRD) Non-Af 105 BUN/Creatinine Ratio 13.3 Glucose 109 H Calcium 9.2 Discharge Plan Triage Chief Complaint: Abscess ED Provider: Buzz Bravo Dx/Rx/DC Orders Clinical Impression: Breast mass, right, Left breast lump Prescriptions: New doxycycline monohydrate 100 mg capsule 100 mg PO BID Qty: 14 0RF No Action dextroamphetamine-amphetamine 10 MG tablet 10 mg PO DAILY Primary Care Provider: Polly Torres Referrals: Aidan Cruz MD [STAFF PHYSICIAN] - 1 Week Polly Torres DO [Primary Care Provider] - Activity Restrictions/Additional Instructions: Call Dr. Aidan Cruz's office in the morning for appointment to be seen after you have completed the mammogram and ultrasound Disposition Disposition: Home, Self Care
[2022-04-09 16:12] LABS: Absolute Lymphocyte Count 2.66 X10^3/uL (0.83-4.51); Absolute Neutrophil Count 5.6 X10^3/uL (2.0-7.7); Basophil# 0.03 X10^3/uL; Basophil% 0.3 % (0-1); Eosinophil# 0.05 X10^3/uL; Eosinophils% 0.6 % (0-5); Hematocrit 41.4 % (37-47); Hemoglobin 13.6 g/dL (12.0-15.0); Lymphocyte # 2.66 X10^3/ul (0.83-4.51); Lymphocyte % 29.9 % (19-41); Mean Corp Hgb Conc 32.9 g/dL (32-36); Mean Corpuscular Hgb 29.2 pg (27.0-32.0); Mean Corpuscular Volume 88.8 fL (81-99); Monocyte# 0.48 X10^3/uL; Monocyte% 5.4 % (0-10); NRBC Flagged by Analyzer 0 % (0-5); Neutrophil # 5.64 X10^3/uL (2.7-7.7); Neutrophil % 63.5 % (47-70); Platelet Count 313 K/mm3 (150-450); RBC Distribution Width CV 13.1 % (11.6-14.6); RBC Distribution Width SD 42.1 fl (35.1-43.9); Red Blood Count 4.66 M/mm3 (4.2-5.4); White Blood Count 8.9 K/mm3 (4.4-11.0)
[2022-04-09 16:35] LABS: Anion Gap 7 (5-15); BUN 9 mg/dL (7-18); BUN/Creat Ratio 13.3 RATIO (10-20); Calcium,Total 9.2 mg/dL (8.5-10.1); Chloride 105 mmol/L (98-107); Creatinine, Serum 0.68 mg/dL (0.55-1.02); EST Glomerular Filtration Rate 105 mL/min (>60); Est Glom Filt Rate - Afr Amer 126 mL/min (>60); Estimated Creatinine Clearance 115.37 ml/min; Glucose 109 mg/dL (74-106); Potassium 4.4 mmol/L (3.5-5.1); Sodium Level 138 mmol/L (136-145)
[2022-04-09] MEDS: Doxycycline 100 MG CAPSULE PO (18:15)
[2022-04-09 18:17] VITALS: BP 125/76; RESP 16; O2SAT 98
== END 2022-04-09 18:18 | disposition home or self-care (01) ==
PROVIDERS: Emergency Provider Emergency Medicine; PCP Family Medicine; Visit Provider Emergency Medicine
DX: N63.20 Unspecified lump in the left breast, unspecified quadrant (principal); Z68.43 Body mass index [BMI] 50.0-59.9, adult; N64.4 Mastodynia; F90.9 Attention-deficit hyperactivity disorder, unspecified type; J45.909 Unspecified asthma, uncomplicated; F32.A Depression, unspecified; Z79.899 Other long term (current) drug therapy; E66.9 Obesity, unspecified
CPT/HCPCS: 80048; 85025; 99284; A4216

== ENCOUNTER → 2022-04-15 | Outpatient (CLI) | payer MEDICAID, SELFPAY ==
--- NOTE | 2022-04-15 09:24 | BI_ITS ---
MAMMOGRAPHY - BILATERAL DIAGNOSTIC REASON FOR EXAM: Female, 36 years old. Bilateral breast lumps. Bilateral nipple discharge. PERTINENT HISTORY: Non-contributory. TECHNIQUE: Digital bilateral breast geoff (3D mammographic acquisition) in the CC and MLO projections. 2-D mediolateral oblique (MLO) and craniocaudad (CC) views of both breasts were obtained. CAD: Full Field Digital Mammography with Computer Added Detection was performed. COMPARISON: None. Baseline examination. FINDINGS: Breast Composition: The breasts are heterogeneously dense, which may obscure small masses. Soft tissue prominence in the retroareolar regions of both breast with overlying skin thickening. Correlation with ultrasound recommended. No other significant abnormalities are identified. BI/DIAG MAMM W/CAD, BILAT IMPRESSION: Soft tissue prominence in the retroareolar regions of both breast with overlying skin thickening. Correlation with ultrasound recommended. ASSESSMENT CATEGORY: BIRADS Category 0: Incomplete. Need additional imaging evaluation. A letter regarding these results will be sent to the patient by the facility within 30 days. Approximately 10% of breast cancers are not detected by mammography. A normal mammogram should not delay biopsy of a clinically suspicious abnormality. Electronically Signed: Aron Chilel MD at 11:13 EDT ,
--- NOTE | 2022-04-15 09:24 | US_ITS ---
STUDY: ULTRASOUND BREAST - BILATERAL REASON FOR EXAM: Female, 36 years old. Bilateral retroareolar palpable abnormalities. Bilateral nipple discharge. The patient is on antibiotics. TECHNIQUE: Axial and longitudinal images of the BILATERAL breast were performed with a high resolution ultrasound transducer. # OF IMAGES: 68 COMPARISON: Comparison is made with prior mammogram done earlier in the day. FINDINGS: BILATERAL Breast: There is a 2.3 cm x 1.2 cm x 0.7 cm well-defined hypoechoic nodule in the retroareolar region of the right breast. Increased vascularity is seen. With the patient''s history of her discharge, this may represent a possible abscess. Further follow-up recommended otherwise biopsy recommended. Diffuse edematous change is seen in the retroareolar region of the left breast. Note this can mass is seen. Possible abscess. Follow-up recommended. US/Breast Limited Unilateral IMPRESSION: Diffuse edematous change seen in the retroareolar region of the left breast. Increased vascularity is seen. This may represent the possible inflammatory phlegmon or early abscess. Follow-up recommended. 2.3 cm x 1.2 cm x 0.7 cm well-defined hypoechoic nodule in the retroareolar region of the right breast. ASSESSMENT CATEGORY: BIRADS Category 3: Probably Benign - Short-Interval Follow-up Suggested. A letter regarding these results will be sent to the patient by the facility within 30 days. Electronically Signed: Aron Chilel MD at 8:26 EDT ,
== END | disposition home or self-care (01) ==
LOC: OPBI 09:22
PROVIDERS: PCP Family Medicine; Visit Provider Emergency Medicine
DX: N63.41 Unspecified lump in right breast, subareolar (principal); N64.52 Nipple discharge; R60.9 Edema, unspecified
CPT/HCPCS: 77062; 76642; 77066; G0279

== ENCOUNTER → 2022-05-21 | Outpatient (CLI) | payer MEDICAID, SELFPAY ==
--- NOTE | 2022-05-21 08:04 | US_ITS ---
STUDY: ULTRASOUND BREAST - LEFT REASON FOR EXAM: Female, 36 years old. Mastitis nipple discharge TECHNIQUE: Axial and longitudinal images of the LEFT breast were performed with a high resolution ultrasound transducer. # OF IMAGES: 48 COMPARISON: 04/15/2022 FINDINGS: LEFT Breast: Heterogeneous background echotexture. Multiple longitudinal and transverse ultrasound images of the retroareolar left breast fail to demonstrate a discrete solid or cystic mass.: IMPRESSION: Normal left breast ultrasound. ASSESSMENT CATEGORY: BIRADS Category 1: Negative. A letter regarding these results will be sent to the patient by the facility within 30 days. Electronically Signed: Darryl Joseph MD at 13:15 EDT , STUDY: ULTRASOUND BREAST - RIGHT REASON FOR EXAM: Female, 36 years old. Short interval follow-up TECHNIQUE: Axial and longitudinal images of the RIGHT breast were performed with a high resolution ultrasound transducer. # OF IMAGES: 48 COMPARISON: 04/15/2022 FINDINGS: RIGHT Breast: Heterogeneous background echotexture. Multiple longitudinal and transverse ultrasound images of the retroareolar right breast demonstrate no change in the 2.5 cm oval parallel microlobulated hypoechoic mass with posterior enhancement not consistent with a simple cyst and therefore ultrasound-guided vacuum-assisted core biopsy is recommended.: US/Breast Limited Unilateral IMPRESSION: No change in 2.5 cm oval hypoechoic mass and ultrasound-guided vacuum-assisted core biopsy is recommended. ASSESSMENT CATEGORY: BIRADS Category 4: Suspicious - Biopsy Should Be Considered. A letter regarding these results will be sent to the patient by the facility within 30 days. Electronically Signed: Darryl Joseph MD at 13:17 EDT ,
== END | disposition home or self-care (01) ==
LOC: OPUS 08:03
PROVIDERS: PCP Family Medicine; Visit Provider Surgery
DX: N63.20 Unspecified lump in the left breast, unspecified quadrant (principal)
CPT/HCPCS: 76642

== ENCOUNTER 2022-06-03 08:42 | Day surgery (SDC) | payer MEDICAID, SELFPAY ==
[2022-06-03] VITALS (7 sets, daily range): BP systolic 89–139; BP diastolic 57–70; PULSE 54–75; RESP 14–18; TEMP 35.8–36.3; O2SAT 92–100; BMI 52.9
[2022-06-03] MEDS: Lactated Ringers 1,000 ML 15 ML IV (09:21)
--- NOTE | 2022-06-03 09:22 | PCM.HP.BLA ---
History and Physical Date of Admission: 06/03/22 Intake Intake Visit Reasons:?Discuss US and decide bx vs. exc bx Chief Complaint: right breast lump Comic Book Designer Required: No Is patient in pain?: No Allergies sertraline HCl [From Zoloft] Allergy (Verified 05/27/22 08:25) RashSulfa (Sulfonamide Antibiotics) Allergy (Verified 05/27/22 08:25) Rashtomato [Tomato] Allergy (Verified 05/27/22 08:25) Hives Medications dextroamphetamine-amphetamine 10 mg tablet 10 mg PO DAILY 04/23/20 [History Confirmed 05/27/22] Is last menstrual period known: No Post menopausal: No Patient : No PFSH Medical History ADHD Anemia Asthma Back pain Depression Heart palpitations Marijuana use Obesity affecting Tobacco use Surgical History?(Updated 04/26/22 @ 08:05 by Nery Zuniga) History of 2 sections History of surgery on wrist History of umbilical hernia repair Social History? household members:? children Smoking Status:? Unknown if ever smoked alcohol intake:? current substance use type:? marijuana HPI HPI HPI: DARSHAN MANCERA, is a 36 F who presents to the office today for right breast mass.? The patient was seen a few months ago and the drainage from her left breast has stopped with the antibiotics.? Patient is having more pain in the right breast behind the right nipple.? She says it is bothering her and keeping her from sleeping.? She is not having any nipple drainage on the side. ROS General General: No weight change or fatigue HEENT HEENT: No difficulty swallowing Endo Endocrine: No thyroid disease Breast Additional Details: Right breast lump behind the nipple and right breast pain Musc Musculoskeletal: No back problems or arthritis Cardio Cardiovascular: No pacemaker, heart disease, atrial fibrillation, high blood pressure, heart attack, heart stent, palpitations or chest pain Psych Psychiatric: No depression or anxiety Resp Respiratory: No shortness of breath, No cough, No COPD, No asthma and No emphysema Gastro Gastrointestinal: No abdominal pain, No nausea or vomiting, No diarrhea, No constipation, No blood in stool, No acid reflux, No hemorrhoids, No ulcers, No gallbladder problem and No black,tarry stools Eduin Hematologic: No blood thinners Exam Const General: cooperative Orientation: alert and oriented x3 HENMT Head: normal to inspection Neck Neck: normal visual inspection and full ROM Chest Chest palpation & inspection: normal inspection of the chest Other: Right breast mass posterior to the right nipple Resp Effort & Inspection: normal respiratory effort Auscultation: clear to auscultation bilaterally Cardio Rate: regular rate Rhythm: regular rhythm GI Inspection: non-distended Palpation: soft and nontender Skin General: no rashes or lesions noted Neuro General: patient alert and patient oriented x3 Extrem General: full ROM Psych Appearance: grossly normal Mental Status: mental status grossly normal Assessment and Plan Assessment and Plan (1) Breast mass, right: ?Status:?Acute ?Plan: The patient has a right breast mass posterior to the right nipple which is causing her pain and inability to sleep.? Ultrasound revealed a BI-RADS 4 lesion.? This is likely a fibroadenoma.? I recommended excisional biopsy to relieve the pain and to check for pathology.? I did discuss with her that if it came back cancer she would need further surgery for margins and sentinel lymph node biopsy.? Patient understands the procedure and is willing to proceed.? I discussed the risks of bleeding and infection with her. Aidan Cruz MD Pager: [facility] [address] [place] [address], [address] [place] [address] Office: I have re-examined the patient. There are no clinical changes since date of exam.
[2022-06-03] MEDS: Ipratropium/Albuterol Sulfate 3 ML AMPUL.NEB INHALATION (10:02)
--- NOTE | 2022-06-03 11:30 | BRBX_PTH ---
PATIENT: DARSHAN MANCERA LOC: [facility] [place] U#:[id number] AGE/SX: 36/F ROOM: RE06/03/[address]: Dr. Aidan Cruz MD : 1985 BED: DIS: 06/03/2022 SPEC #: [id number] RECD: 06/03/22 13:17 STATUS: JH CONNIE #: [id number] JARED: 06/03/22 11:[address]: Aidan Cruz DEPT: SURGICAL PATHOLOGY RECD BY: Suly Wesley ENTERED: 06/03/22 13:35 SP TYPE: BREAST BX OTHR DR: Dr. Polly Torres, DO Tissues: Right breast, NOS Procedures: Surgery Specimen Level V HEADER OPERATION: Excisional biopsy right breast mass PRE-OP DIAGNOSIS: Right breast mass TISSUE SUBMITTED: Right breast excisional biopsy MICROSCOPIC DIAGNOSIS Right breast mass, excisional biopsy: Focal fibrocystic changes and mild intraductal hyperplasia without atypia. Negative for malignancy. See comment. JONO:bernie 06/06/2022 COMMENT Correlation with clinical findings and appropriate follow up are necessary. MICROSCOPIC DESCRIPTION Slides are reviewed. GROSS DESCRIPTION Received in fixative is one container labeled with the patient's name and designated right breast excisional biopsy. The specimen consists of two pieces of lbas-yellow fibroadipose tissue measuring 4.5 x 3.5 x 1.5 cm and 2.5 x 2 x 1.5 cm. The specimen is not oriented. Both pieces are inked. Sections reveal yellow adipose cut surfaces with focal fibrous areas. No obvious mass lesion is identified. Case Folder sections are submitted in six cassettes as follows: 1-5 ? larger piece, 6 ? smaller piece. Sections are submitted after additional fixation. / JONO:bernie 06/04/2022 TC:5 CPT: 62848
[2022-06-03] MEDS: Bupivacaine 0.25% 30 ML Vial (11:36)
--- NOTE | 2022-06-03 12:19 | PCM.OPRPT ---
Report of Operation Date of Procedure: 06/03/22 Pre-Operative Diagnosis: Right breast mass Post-Operative Diagnosis: Same Surgery/Procedure Performed:: Excisional biopsy of right breast mass Specimen's removed: Right breast mass Description of Procedure: Patient was brought back to the operating room and general anesthesia was induced. The right breast was prepped and draped in usual sterile fashion. An area inferior to the nipple was injected with local anesthetic and then a curvilinear incision was made at the border of the areola. Skin hooks were used to raise the skin and a flap was brought down as well as the mass. It appeared that the mass was a large subcutaneous cyst. The contents were evacuated and the cyst cavity was dissected free circumferentially and sent for pathology. The cavity was irrigated and suctioned dry and hemostasis was obtained using electrocautery. The incision was closed with interrupted 3-0 Vicryl suture and running 4 Monocryl suture and glue was applied. Patient tolerated the procedure well. Admit VTE Documentation VTE Mechan Device Prophylaxis: SCD's
--- NOTE | 2022-06-03 12:26 | DCINST_ITS ---
Discharge Instructions Procedure Breast Surgery Diet Discharge Diet: No restrictions Activity Discharge Activity: May Drive and May Shower May shower in (days): 1 Lifting Restrictions: 20 lbs for 1 week Dressing / Incision Call your doctor if your incision/area has: Continuous Slow Oozing, Sudden Increased Bleeding, Increased Pain/ Swelling, Increased Redness, Foul Smelling Discharge and Swelling at the incision site Call your doctor if you observe: Fever of 101 or Higher Suture Line Care: Avoid Pulling/Pushing and Avoid Pinching/Bending Cleanse incision/area with: Soap & Water Follow Up Care Please Follow Up With: Aidan Cruz MD When: Please call to schedule 2 week follow up appointment. [phone] Test Results: Test results from this visit will be discussed in further detail at your follow- up appointment, if applicable. Discharge Plan Admission Attending Provider: Aidan Cruz Primary Care Provider: Polly Torres Instructions Additional Instructions / Restrictions: Tylenol and Ibuprofen for pain Discharge Orders/Prescriptions Prescriptions: New oxycodone-acetaminophen [Percocet] 5-325 mg tablet 1 tab PO Q4H PRN (Reason: pain) 5 Days Qty: 10 0RF No Action dextroamphetamine-amphetamine 10 MG tablet 10 mg PO DAILY albuterol sulfate [Ventolin HFA] 90 mcg/actuation Hfa Aerosol Inhaler 1 puff INHALATION Q6H PRN (Reason: ASTHMA) Referrals / Follow Up: Polly Torres DO [Primary Care Provider] - Disposition Disposition (needs filled in before D/C Order can be placed): Home, Self Care
== END 2022-06-03 13:05 | disposition home or self-care (01) ==
LOC: SDC 08:43 → AC 08:46
PROVIDERS: PCP Family Medicine; Referring Provider Surgery; Visit Provider Surgery
DX: N63.10 Unspecified lump in the right breast, unspecified quadrant (principal); N64.4 Mastodynia; F90.9 Attention-deficit hyperactivity disorder, unspecified type; Z79.899 Other long term (current) drug therapy; J45.909 Unspecified asthma, uncomplicated; F17.290 Nicotine dependence, other tobacco product, uncomplicated
CPT/HCPCS: 19120; 00400; 88305; 87426; 88307; 94640; J7120; J2405

== ENCOUNTER 2022-07-25 16:40 | Emergency (ER) | payer MEDICAID, SELFPAY ==
[2022-07-25 16:41] VITALS: BP 109/76; PULSE 83; RESP 16; TEMP 36.2; O2SAT 96; BMI 50.2
[2022-07-25] MEDS: Ibuprofen 600 MG Tablet PO (18:00)
--- NOTE | 2022-07-25 18:00 | RAD_ITS ---
STUDY: X-RAY - LEFT WRIST REASON FOR EXAM: Female, 37 years old. Pain, injury TECHNIQUE: 3 view(s) of the wrist were obtained. COMPARISON: November 07, 2014. FINDINGS: Normal visualized distal radius and ulna. Normal radiocarpal articulation. Normal distal radioulnar articulation. Normal carpal bones. Normal carpal articulations. Normal carpometacarpal articulation of the thumb. Normal second through fifth carpometacarpal articulations. There is cyst of the third metacarpal head. The soft tissue structures are unremarkable. There is no demonstrated acute fracture. RAD/Wrist min 3 Views IMPRESSION: No fracture. Electronically Signed: Iain Villavicencio MD at 19:08 EDT ,
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
[2022-07-25 19:56] VITALS: PULSE 74; RESP 18; O2SAT 98
== END 2022-07-25 19:57 | disposition home or self-care (01) ==
PROVIDERS: Emergency Provider Emergency Medicine; PCP Family Medicine; Visit Provider Emergency Medicine
DX: S60.212A Contusion of left wrist, initial encounter (principal); M25.512 Pain in left shoulder; R51.9 Headache, unspecified; V43.52XA Car driver injured in collision with other type car in traffic accident, initial encounter
CPT/HCPCS: 73110; 99283

== ENCOUNTER → 2022-08-06 | Outpatient (CLI) | payer MEDICAID, SELFPAY ==
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
== END | disposition home or self-care (01) ==
LOC: RAD 15:55
PROVIDERS: PCP Family Medicine; Referring Provider Family Medicine; Visit Provider Family Medicine
DX: M54.2 Cervicalgia (principal)
CPT/HCPCS: 72050

== ENCOUNTER 2022-10-25 18:57 | Emergency (ER) | payer MEDICAID, SELFPAY ==
[2022-10-25 18:57] VITALS: BP 133/69; PULSE 68; RESP 16; TEMP 36.8; O2SAT 99; BMI 50.6
--- NOTE | 2022-10-25 19:09 | EX.ED.DYSGE1 ---
HPI History of Present Illness Chief Complaint: Lower Extremity Injury Narrative Narrative: Patient presents with pain behind her left knee. She was seen by his PCP and sent to our emergency department. I talked to Dr. Whitaker prior to patient arrival. She has no chest pain or shortness of breath. She does not know any causality of this pain she recently started working out and this pain behind her knee is mildly painful she does not have pain when she stands up or pain in the actual knee. She has no distal pain in that leg in the calf or any lower extremity edema. [facility] Medical History ADHD Anemia Arthritis Asthma Back pain Back pain Cardiology follow-up encounter Depression Former smoker Heart palpitations History of echocardiogram History of Holter monitoring History of stress test Marijuana use Obesity affecting Shortness of breath on exertion Vapes nicotine containing substance Wears glasses Home Medications dextroamphetamine-amphetamine 10 mg tablet 10 mg PO DAILY 04/23/20 [History Last Taken 06/03/22] albuterol sulfate 90 mcg/actuation aerosol inhaler (Ventolin HFA) 1 puff inhalation Q6H PRN ASTHMA 05/28/22 [History Last Taken Unknown] naproxen 500 mg tablet (Naprosyn) 500 mg PO BID #20 tabs 10/25/22 [Rx Last Taken Unknown] Allergy/AdvReac Type Severity Reaction Status Date / Time sertraline HCl [From Zoloft] Allergy Rash Verified 10/25/22 19:01 Sulfa (Sulfonamide Allergy Rash Verified 10/25/22 19:01 Antibiotics) tomato [Tomato] Allergy Hives Verified 10/25/22 19:01 suture AdvReac DISSOLVABLE Verified 10/25/22 19:01 SUTURES DO NOT DISOLVE Surgical History History of 2 sections History of excision of lesion (~06/2022) History of surgery on wrist History of umbilical hernia repair Social History household members: children Smoking Status: Current every day smoker tobacco type: cigarettes and smokeless tobacco alcohol intake: current substance use type: marijuana ROS ROS ED ROS Narrative Past medical history: Reviewed Medications: Reviewed Social history: Noncontributory Review of systems: All systems negative except as indicated General: No fever Cardiovascular: No chest pain Respiratory: No shortness of breath or cough Gastrointestinal: No abdominal pain, nausea vomiting or diarrhea Genitourinary: No dysuria Musculoskeletal: As in HPI Skin: No rash Neurological: No memory loss, confusion or any focal weakness Hematologic: No easy bleeding or easy bruising or clotting. EXAM Physical Exam Narrative Exam Narrative: Physical exam General: She appears relatively comfortable in the chair. Head: Normocephalic, Atraumatic Eyes: Conjunctiva not pale ENT: Moist mucous membranes Cardiovascular: Regular rate, Regular rhythm Respiratory: No distress, CTA bilaterally Abdomen: Soft, Nontender, Nondistended Extremities: There is a cystic structure behind her left knee. There is no erythema or calor. Knee itself has no pain with no laxity on stressors and a normal extensor mechanism. Distally there is no erythema or calor or edema or any signs of infection. Skin: Normal color, No rash Neurological: Alert, Normal Strength, Normal Sensation Psychological: Normal affect Const Vital Signs: 10/25/22 18:57 Temperature 98.2 F Temperature Source Temporal Pulse Rate 68 Respiratory Rate 16 Blood Pressure 133/69 H Blood Pressure Mean 90 Pulse Ox 99 Oxygen Delivery Method Room Air MDM MDM MDM Narrative Medical decision making narrative: Patient was discussed with Dr. Whitaker who knows her. My worry was for DVT which is why an ultrasound was ordered. The DVT ultrasound was negative. Patient was reassured it did show a Trejo's cyst and she can follow-up with orthopedics for this. I will refer her. I gave her NSAIDs for home in the form of Naprosyn. Radiography Diagnostic Testing: Clinical Impression(s) from Imaging Studies Venous Duplex 10/25/22 19:48 IMPRESSION: No sonographic evidence of deep venous thrombosis. There is a left popliteal cyst. Electronically Signed: Rd Patterson MD at 20:32 EST , Discharge Plan Triage Chief Complaint: Lower Extremity Injury ED Provider: Davon Veliz Dx/Rx/DC Orders Clinical Impression: Acute leg pain, Trejo cyst Instructions: Popliteal Cyst Prescriptions: New naproxen [Naprosyn] 500 mg tablet 500 mg PO BID Qty: 20 0RF No Action dextroamphetamine-amphetamine 10 MG tablet 10 mg PO DAILY albuterol sulfate [Ventolin HFA] 90 mcg/actuation Hfa Aerosol Inhaler 1 puff INHALATION Q6H PRN (Reason: ASTHMA) Primary Care Provider: Polly Torres Referrals: Polly Torres DO [Primary Care Provider] - 3-5 Days Disposition Disposition: Home, Self Care
--- NOTE | 2022-10-25 19:48 | US_ITS ---
EXAM: US DUPLEX LEFT LOWER EXTREMITY VEINS CLINICAL INDICATION: LT POSTERIOR KNEE PAIN AND PALP BUBBLE TECHNIQUE: Real-time duplex ultrasound scan of the left lower extremity veins integrating B-mode two-dimensional vascular structure, Doppler spectral analysis, color flow Doppler imaging and compression. This report was created using [employer] report [employer] technology. COMPARISON: None. FINDINGS: DEEP VEINS: Unremarkable. No DVT in the visualized common femoral, femoral, proximal deep femoral or popliteal veins. The veins demonstrate normal color flow, are normally compressible, with normal phasic flow and/or augmentation response. SUPERFICIAL VEINS: Unremarkable. No thrombus in the visualized great saphenous vein. SOFT TISSUES: There is a 6.2 x 2.8 x 4.0 cm anechoic structure posterior knee compatible with popliteal cyst. US/Venous Duplex Imag/Limited/Uni IMPRESSION: No sonographic evidence of deep venous thrombosis. There is a left popliteal cyst. Electronically Signed: Rd Patterson MD at 20:32 EST ,
== END 2022-10-25 21:29 | disposition home or self-care (01) ==
PROVIDERS: Emergency Provider Emergency Medicine; PCP Family Medicine; Visit Provider Emergency Medicine
DX: M71.22 Synovial cyst of popliteal space [Baker], left knee (principal); F17.220 Nicotine dependence, chewing tobacco, uncomplicated; F17.210 Nicotine dependence, cigarettes, uncomplicated; J45.909 Unspecified asthma, uncomplicated
CPT/HCPCS: 93971; 99282

== ENCOUNTER 2022-12-20 09:47 | Emergency (ER) | payer MEDICAID, SELFPAY ==
[2022-12-20 09:48] VITALS: BP 152/80; PULSE 72; RESP 14; TEMP 36.1; O2SAT 98; BMI 51.9
--- NOTE | 2022-12-20 10:37 | EX.ED.DYSGE1 ---
HPI History of Present Illness Chief Complaint: Allergic Reaction Informant: patient Onset/Context/Timing Onset: Days Context: Gradual Onset Timing: Waxes and wanes Current Severity: Moderate Maximum Severity: Moderate Narrative Narrative: Patient presents secondary to allergic reaction. Patient recently was seen by a new primary care physician who did a full panel blood work. She was noted to have low vitamin D levels and a prescription was written for her to start taking vitamin D. Since taking this medicine patient states that she will get facial swelling and itching. This morning she woke up with hives. Symptoms seem to wane the further she gets from the time of ingestion, but after each new dose reaction seems to get slightly worse. She denies shortness of breath at this time. She denies throat tightness or difficulty swallowing. [facility] Medical History ADHD Anemia Arthritis Asthma Back pain Cardiology follow-up encounter Depression Former smoker Heart palpitations History of echocardiogram History of Holter monitoring History of stress test Marijuana use Obesity affecting Shortness of breath on exertion Vapes nicotine containing substance Wears glasses Home Medications dextroamphetamine-amphetamine 10 mg tablet 10 mg PO DAILY 04/23/20 [History Last Taken 06/03/22] albuterol sulfate 90 mcg/actuation aerosol inhaler (Ventolin HFA) 1 puff inhalation Q6H PRN ASTHMA 05/28/22 [History Last Taken Unknown] naproxen 500 mg tablet (Naprosyn) 500 mg PO BID #20 tabs 10/25/22 [Rx Last Taken Unknown] diphenhydramine HCl 25 mg capsule (Benadryl) 50 mg PO TID PRN allergic reaction #30 caps 12/20/22 [Rx Last Taken Unknown] famotidine 40 mg tablet (Pepcid) 40 mg PO DAILY #14 tabs 12/20/22 [Rx Last Taken Unknown] prednisone 20 mg tablet 60 mg PO DAILY #12 TABLETS 12/20/22 [Rx Last Taken Unknown] Allergy/AdvReac Type Severity Reaction Status Date / Time sertraline HCl [From Zoloft] Allergy Rash Verified 12/20/22 09:48 Sulfa (Sulfonamide Allergy Rash Verified 12/20/22 09:48 Antibiotics) tomato [Tomato] Allergy Hives Verified 12/20/22 09:48 suture AdvReac DISSOLVABLE Verified 12/20/22 09:48 SUTURES DO NOT DISOLVE Surgical History History of 2 sections History of excision of lesion (~06/2022) History of surgery on wrist History of umbilical hernia repair Social History household members: children Smoking Status: Current every day smoker tobacco type: cigarettes and smokeless tobacco alcohol intake: current substance use type: marijuana ROS ROS ED Constitutional Constitutional ED: Denies chills or fever(s) Eyes Eyes: Denies change in vision or discharge from eye(s) ENT ENT ED: Denies discharge from eye(s), rhinorrhea or sore throat Cardiovascular Cardiovascular: Denies chest pain or palpitations Respiratory/Chest Respiratory/Chest: Denies cough or dyspnea Gastrointestinal Gastrointestinal: Denies abdominal pain, diarrhea, nausea or vomiting Genitourinary Genitourinary ED: Denies difficulty urinating or dysuria Musculoskeletal Musculoskeletal: Reports myalgias Integumentary Reports rash; Denies Abrasions Neurologic Neurologic: Denies headache(s) or weakness Psychiatric Psychiatric: Denies anxiety or depression Allergic/Immunologic Allergic/Immunologic ED: Denies lip swelling or urticaria EXAM Physical Exam Const Vital Signs: 12/20/22 09:48 Temperature 97 F L Temperature Source Temporal Pulse Rate 72 Respiratory Rate 14 Blood Pressure 152/80 H Blood Pressure Mean 104 Pulse Ox 98 Oxygen Delivery Method Room Air Positive well nourished and well developed General Appearance ED: well developed HEENT Reports normocephalic and head/scalp atraumatic Eyes PERRL and EOMs intact bilaterally Neck supple Chest Wall inspection of chest normal and palpation of chest normal Resp normal respiratory effort and clear to auscultation bilaterally Cardio regular rate and regular rhythm GI normal to inspection, nondistended, normoactive bowel sounds Palpation: soft Extremity normal to inspection Neuro oriented x3 and no sensory deficits noted Sensorium / Orientation: alert Motor Exam: strength 5/5 throughout Psych mental status grossly normal Skin Skin Narrative: Urticarial lesions noted to the face, left greater than right. No open lesions. MDM MDM MDM Narrative Medical decision making narrative: Patient was given p.o. prednisone, Pepcid, Benadryl. On repeat evaluation an hour later symptoms are improving. She states her face does not feel as tense and her erythema is improving. Patient we discharged with prescriptions for the above. She is already spoken with her physician and will stop the vitamin D. She has a follow-up appointment scheduled on the and they will discuss at that time whether to restart any different medication. Return instructions are provided. Discharge Plan Triage Chief Complaint: Allergic Reaction ED Provider: Laura Peres Dx/Rx/DC Orders Clinical Impression: Allergic reaction, Urticaria Instructions: ED Drug Reaction, Other, ED Hives (Adult) Prescriptions: New diphenhydramine HCl [Benadryl] 25 mg capsule 50 mg PO TID PRN (Reason: allergic reaction) Qty: 30 0RF famotidine [Pepcid] 40 mg tablet 40 mg PO DAILY Qty: 14 0RF prednisone 20 mg tablet 60 mg PO DAILY Qty: 12 0RF No Action dextroamphetamine-amphetamine 10 MG tablet 10 mg PO DAILY albuterol sulfate [Ventolin HFA] 90 mcg/actuation Hfa Aerosol Inhaler 1 puff INHALATION Q6H PRN (Reason: ASTHMA) naproxen [Naprosyn] 500 mg tablet 500 mg PO BID Qty: 20 0RF Primary Care Provider: Jeannie Johnston NP Referrals: Polly Torres DO [Med Staff - Active Staff] - [facility] appointment Disposition Disposition: Home, Self Care
[2022-12-20] MEDS: DiphenhydrAMINE 25 MG Capsule 50 MG PO (10:43)
[2022-12-20] MEDS: predniSONE 20 MG Tablet 60 MG PO (10:43)
[2022-12-20] MEDS: Famotidine 20 MG Tablet 40 MG PO (11:23)
[2022-12-20 11:42] VITALS: BP 139/57; PULSE 71; RESP 16; O2SAT 99
== END 2022-12-20 11:42 | disposition home or self-care (01) ==
PROVIDERS: Emergency Provider Emergency Medicine; PCP Internal Medicine; Visit Provider Emergency Medicine
DX: T78.40XA Allergy, unspecified, initial encounter (principal); L50.9 Urticaria, unspecified; Z79.52 Long term (current) use of systemic steroids; F17.210 Nicotine dependence, cigarettes, uncomplicated; F17.220 Nicotine dependence, chewing tobacco, uncomplicated
CPT/HCPCS: 99283

== ENCOUNTER 2024-02-27 17:18 | Emergency (ER) | payer MEDICAID, SELFPAY ==
[2024-02-27 17:19] VITALS: BP 165/59; PULSE 82; RESP 16; TEMP 36.4; O2SAT 98; BMI 50.1
--- NOTE | 2024-02-27 17:31 | EDS_ITS ---
HPI History of Present Illness HPI Narrative: Patient presents with right ankle injury that occurred today. Patient states she lost her balance and fell. Patient states she twisted her right ankle and landed on her left knee and left wrist. Patient describes her pain as sharp, aching, and throbbing. Patient states her pain is worse with any weightbearing. Patient states it is better with rest. Patient admits to some tingling into her left ankle. Patient also admits to pain in her left wrist and left knee. Patient is unsure of her last tetanus. Chief Complaint: Lower Extremity Injury Occured/Mechanism Mechanism/Context: Yes fall Onset/Context/Timing Onset: Today Context: Sudden Onset Timing: Continuous Quality of Pain: Sharp, Aching and Throbbing Location: Right ankle, left knee, left wrist Worsened by: Weightbearing Relieved by: Rest Associated Symptoms Associated Symptoms: Positive for Parasthesia; Negative for Weakness or Loss of Funtion Narrative Tetanus Immunization: Unknown [facility] Medical History H/O low back pain H/O cyst of breast Wears glasses Arthritis Back pain Shortness of breath on exertion Vapes nicotine containing substance Former smoker History of echocardiogram History of stress test History of Holter monitoring Cardiology follow-up encounter Depression ADHD Anemia Heart palpitations Marijuana use Asthma Obesity affecting Home Medications ?Medication ?Instructions ?Recorded ?Last Taken ?Type dextroamphetamine-amphetamine 10 10 mg PO DAILY 04/23/20 06/03/22 History mg tablet albuterol sulfate 90 mcg/actuation 1 puff inhalation Q6H PRN ASTHMA 05/28/22 Unknown History aerosol inhaler (Ventolin HFA) naproxen 500 mg tablet (Naprosyn) 500 mg PO BID #20 tabs 10/25/22 Unknown Rx diphenhydramine HCl 25 mg capsule 50 mg (2 x 25 mg) PO TID PRN 12/20/22 Unknown Rx (Benadryl) allergic reaction #30 caps famotidine 40 mg tablet (Pepcid) 40 mg PO DAILY #14 tabs 12/20/22 Unknown Rx prednisone 20 mg tablet 60 mg (3 x 20 mg) PO DAILY #12 12/20/22 Unknown Rx TABLETS dextroamphetamine-amphetamine 5 mg 5 mg PO DAILY 02/04/24 Unknown History tablet (Adderall) Allergy/AdvReac Type Severity Reaction Status Date / Time sertraline HCl (From Zoloft) Allergy Rash Verified 02/27/24 17:21 Sulfa (Sulfonamide Allergy Rash Verified 02/27/24 17:21 Antibiotics) tomato (Tomato) Allergy Hives Verified 02/27/24 17:21 suture AdvReac DISSOLVABLE Verified 02/27/24 17:21 SUTURES DO NOT DISOLVE Family History (Updated 02/04/24 @ 11:05 by Alondra Hayes) Grandfather Heart disease Kidney disease Surgical History H/O excision of ganglion cyst History of excision of lesion (~06/2022) History of surgery on wrist History of umbilical hernia repair History of 2 sections Social History household members: children Smoking Status: Former smoker how long ago did patient quit smoking: quit january 04, 2023 alcohol intake: current details: social substance use type: marijuana additional social history: pt denies smoking( quit january 04, 2023), denies vaping, Uses medical marijuana daily, edibles last used one month ago denies aspirin use, denies ibuprofen use. ROS ROS ED Constitutional Constitutional ED: Denies chills or fever(s) Eyes Eyes: Denies blurry vision or change in vision ENT ENT ED: Denies rhinorrhea or sore throat Cardiovascular Cardiovascular: Denies chest pain or palpitations Respiratory/Chest Respiratory/Chest: Denies cough or dyspnea Gastrointestinal Gastrointestinal: Denies nausea or vomiting Genitourinary Genitourinary ED: Denies dysuria or hematuria Musculoskeletal Musculoskeletal: Denies back pain or neck pain Integumentary Denies abscess or rash Neurologic Neurologic: Denies headache(s) or weakness Allergic/Immunologic Allergic/Immunologic ED: Denies mouth swelling or urticaria EXAM Physical Exam Const Vital Signs: 02/27/24 17:19 Temperature 97.6 F L Temperature Source Temporal Pulse Rate 82 Respiratory Rate 16 Blood Pressure 165/59 H Blood Pressure Mean 94 Pulse Ox 98 Oxygen Delivery Method Room Air Positive well nourished and well developed General Appearance ED: well developed and NAD HEENT Reports moist mucous membranes Extremity Extremity Narrative: There is tenderness, edema, ecchymosis over the lateral aspect of the right ankle and hindfoot. There is mild tenderness over the fifth metatarsal. There is no tenderness over the proximal fibula. Range of motion was limited in all motions of the right ankle secondary to pain. There is also tenderness over the dorsal aspect of the left wrist and proximal fourth and fifth metacarpals. There is some edema. There is no ecchymosis. There is no deformity noted. There is slightly limited range of motion of the left wrist secondary to pain. There is also tenderness and an abrasion over the anterior aspect of the left knee. There is no effusion. There is no bony crepitance or step-off. There is no tenderness over the patella. There is good range of motion. Radial pulses are equal bilateral. Pedal pulses are equal bilaterally. Strength is 5/5 bilateral in the upper and lower extremities. There are no sensory deficits noted. General Extremety ED: Yes weight-bearing difficulty General Extremity: weight-bearing difficulty Neuro oriented x3, CN's II-XII intact bilaterally, moves all extremities and no sensory deficits noted Sensorium / Orientation: alert Motor Exam: strength 5/5 throughout Psych mental status grossly normal Skin Trauma: abrasion MDM MDM MDM Narrative Medical decision making narrative: Differential diagnosis includes left wrist fracture, right ankle fracture, sprain, contusion, and abrasion. X-rays of the right ankle will be obtained to assess for fracture. X-rays of the left wrist will be obtained to assess for fracture. Radiography Diagnostic Testing: Clinical Impression(s) from Imaging Studies Ankle X-Ray 02/27/24 17:37 IMPRESSION: Normal x-ray examination of the ankle. Electronically Signed: Yair Barrios MD at 17:54 EDT , Wrist X-Ray 02/27/24 17:40 IMPRESSION: Normal x-ray examination of the wrist. Electronically Signed: Yair Barrios MD at 17:55 EDT , X-rays of the left wrist were obtained. There are 3 views. On my independent interpretation, there is no acute fracture or dislocation noted. There is no soft tissue swelling noted. Radiologist also interpreted the x-rays and agrees. X-rays of the right ankle were obtained. There are 4 views. On my independent interpretation, there is no acute fracture or dislocation noted. There is some mild soft tissue swelling noted. Radiologist also interpreted the x-rays and agrees. Treatment and Re-Evaluation Narrative: Patient was given a tetanus booster. Bacitracin dressings were applied to the abrasion. Patient was given an Aircast. Patient was instructed to ice and elev ate the right ankle and left wrist. Patient was instructed to follow-up with her primary care physician in 5 to 7 days. Patient understood and was agreeable with the plan. All questions were answered. Discharge Plan Triage Chief Complaint: Lower Extremity Injury ED Provider: Wagner Franklin Dx/Rx/DC Orders Clinical Impression: Right ankle sprain, Fall, Left wrist sprain Instructions: ED Wrist Sprain, ED Ankle Sprain (Adult) Prescriptions: No Action dextroamphetamine-amphetamine [Adderall] 5 mg tablet 5 mg PO DAILY dextroamphetamine-amphetamine 10 MG tablet 10 mg PO DAILY albuterol sulfate [Ventolin HFA] 90 mcg/actuation Hfa Aerosol Inhaler 1 puff INHALATION Q6H PRN (Reason: ASTHMA) naproxen [Naprosyn] 500 mg tablet 500 mg PO BID Qty: 20 0RF diphenhydramine HCl [Benadryl] 25 mg capsule 50 mg PO TID PRN (Reason: allergic reaction) Qty: 30 0RF famotidine [Pepcid] 40 mg tablet 40 mg PO DAILY Qty: 14 0RF prednisone 20 mg tablet 60 mg PO DAILY Qty: 12 0RF Primary Care Provider: Jeannie Johnston NP Referrals: Jeannie Johnston NP, ELEMENTARY SCHOOL TEACHER-C [Primary Care Provider] - 5-7 Days Print Language: New Zealander Disposition Disposition: Home, Self Care
--- NOTE | 2024-02-27 17:37 | RAD_ITS ---
STUDY: X-RAY - RIGHT ANKLE REASON FOR EXAM: Female, 38 years old. Injury/Pain TECHNIQUE: 3 view(s) of the ankle. COMPARISON: None. FINDINGS: Normal visualized distal tibia and fibula. Normal medial and lateral malleoli. Normal tibiotalar articulation and ankle mortise. Normal visualized talus and calcaneus. The visualized subtalar, talonavicular, calcaneocuboid and tarsal articulations are normal. There is no demonstrated fracture. The soft tissue structures are unremarkable. RAD/Ankle min 3 Views IMPRESSION: Normal x-ray examination of the ankle. Electronically Signed: Yair Barrios MD at 17:54 EDT ,
--- NOTE | 2024-02-27 17:40 | RAD_ITS ---
STUDY: X-RAY - LEFT WRIST REASON FOR EXAM: Female, 38 years old. Injury/Pain TECHNIQUE: 3 view(s) of the wrist were obtained. COMPARISON: None. FINDINGS: Normal visualized distal radius and ulna. Normal radiocarpal articulation. Normal distal radioulnar articulation. Normal carpal bones. Normal carpal articulations. Normal carpometacarpal articulation of the thumb. Normal second through fifth carpometacarpal articulations. Normal visualized metacarpal bones. The soft tissue structures are unremarkable. There is no demonstrated acute fracture. RAD/Wrist min 3 Views IMPRESSION: Normal x-ray examination of the wrist. Electronically Signed: Yair Barrios MD at 17:55 EDT ,
[2024-02-27] MEDS: Diphth,Pertuss(Acell),Tet Vac 0.5 ML Vial IM (17:50)
[2024-02-27 18:38] VITALS: BP 140/72; PULSE 87; RESP 19; TEMP 36.8; O2SAT 97
== END 2024-02-27 18:39 | disposition home or self-care (01) ==
PROVIDERS: Emergency Provider Emergency Medicine; PCP Internal Medicine; Visit Provider Emergency Medicine
DX: S93.401A Sprain of unspecified ligament of right ankle, initial encounter (principal); Z87.891 Personal history of nicotine dependence; S63.92XA Sprain of unspecified part of left wrist and hand, initial encounter; S90.01XA Contusion of right ankle, initial encounter; S90.811A Abrasion, right foot, initial encounter; Z23 Encounter for immunization; W19.XXXA Unspecified fall, initial encounter
CPT/HCPCS: 73110; 73610; 90471; 90715; 99285

== ENCOUNTER 2025-06-14 16:29 | Emergency (ER) | payer MEDICAID, SELFPAY ==
[2025-06-14 16:30] VITALS: BP 117/66; PULSE 62; RESP 16; TEMP 36.8; O2SAT 100; BMI 37.1
[2025-06-14] MEDS: Tetracaine 0.5% Ophthalmic Bottle 1 DRP OPHTHALMIC (17:24)
--- NOTE | 2025-06-14 17:26 | EX.ED.VIS.EY ---
HPI History of Present Illness Chief Complaint: Eye Problem Informant: patient Narrative Narrative: Patient is a 40-year-old female who wears glasses presenting with bilateral eye pain (left worse than right). She states she was doing the dishes and making dinner last night. There is bleach in the water (helpful bleach). Something was thrown into the sink and it is because the water splashed into her face getting mostly in her left eye. She rinsed her eyes out after that. She woke up this morning with increased swelling and redness as well as irritation to her eyes. Is worsened throughout the day. She came in for further evaluation. She has a mild headache and feels that her vision is blurry. Denies any rhinorrhea. Does have an gas leak inspector but cannot recall the name. No other complaints or concerns at this time [facility] Medical History H/O low back pain H/O cyst of breast Wears glasses Arthritis Back pain Shortness of breath on exertion Vapes nicotine containing substance Former smoker History of echocardiogram History of stress test History of Holter monitoring Cardiology follow-up encounter Depression ADHD Anemia Heart palpitations Marijuana use Asthma Obesity affecting Home Medications ?Medication ?Instructions ?Recorded ?Last Taken ?Type dextroamphetamine-amphetamine 10 10 mg PO DAILY 04/23/20 06/03/22 History mg tablet albuterol sulfate 90 mcg/actuation 1 puff inhalation Q6H PRN ASTHMA 05/28/22 Unknown History aerosol inhaler (Ventolin HFA) naproxen 500 mg tablet (Naprosyn) 500 mg PO BID #20 tabs 10/25/22 Unknown Rx diphenhydramine HCl 25 mg capsule 50 mg (2 x 25 mg) PO TID PRN 12/20/22 Unknown Rx (Benadryl) allergic reaction #30 caps famotidine 40 mg tablet (Pepcid) 40 mg PO DAILY #14 tabs 12/20/22 Unknown Rx prednisone 20 mg tablet 60 mg (3 x 20 mg) PO DAILY #12 12/20/22 Unknown Rx TABLETS dextroamphetamine-amphetamine 5 mg 5 mg PO DAILY 02/04/24 Unknown History tablet (Adderall) erythromycin 5 mg/gram (0.5 %) eye 0.5 inch EACH EYE BID 5 days #3.5 06/14/25 Unknown Rx ointment grams ketorolac 0.4 % eye drops 1 drp EACH EYE Q6H PRN eye pain #5 06/14/25 Unknown Rx mL Allergy/AdvReac Type Severity Reaction Status Date / Time sertraline HCl (From Zoloft) Allergy Rash Verified 06/14/25 16:33 Sulfa (Sulfonamide Allergy Rash Verified 06/14/25 16:33 Antibiotics) tomato (Tomato) Allergy Hives Verified 06/14/25 16:33 suture AdvReac DISSOLVABLE Verified 06/14/25 16:33 SUTURES DO NOT DISOLVE Family History Grandfather Heart disease Kidney disease Surgical History H/O excision of ganglion cyst History of excision of lesion (~06/2022) History of surgery on wrist History of umbilical hernia repair History of 2 sections Social History household members: children Smoking Status: Former smoker how long ago did patient quit smoking: quit january 04, 2023 alcohol intake: current details: social substance use type: marijuana additional social history: pt denies smoking( quit january 04, 2023), denies vaping, Uses medical marijuana daily, edibles last used one month ago denies aspirin use, denies ibuprofen use. ROS ROS ED Constitutional Constitutional ED: Denies chills or fever(s) Eyes Eyes: Reports other Details: Bilateral eye pain and redness ; Denies blurry vision ENT ENT ED: Denies rhinorrhea or sore throat Gastrointestinal Gastrointestinal: Denies nausea or vomiting Neurologic Neurologic: Reports headache(s) EXAM Physical Exam Const Vital Signs: 06/14/25 16:30 Temperature 98.2 F Temperature Source Oral Pulse Rate 62 Respiratory Rate 16 Blood Pressure 117/66 Blood Pressure Mean 83 Pulse Ox 100 Oxygen Delivery Method Room Air Positive well nourished and well developed General Appearance ED: well developed and NAD HEENT atraumatic Eyes Eyes Narrative: Mild edema of the eyelids more pronounced on the left compared to the right. PERRL, EOMI. Bilateral conjunctival injection more pronounced on the left than the right. On fluorescein exam there is no uptake of fluorescein consistent with corneal abrasion or ulceration. Neck supple Resp normal respiratory effort Neuro oriented x3 Sensorium / Orientation: alert Motor Exam: Negative for general weakness Skin no wounds Lesions: no lesions MDM MDM MDM Narrative Medical decision making narrative: Patient Garcia presents to the emergency room a for bilateral eye redness and pain after bleach was splashed in her eyes yesterday. He was household bleach that was diluted in water. Differential includes corneal abrasion, chemical conjunctivitis and secondary bacterial conjunctivitis. Patient does not wear contact lenses and only wears glasses. Tetracaine is instilled into the eyes bilaterally and patient has improvement of her pain. No corneal abrasion appreciated on fluorescein exam. Patient will be started on ketorolac drops as she cannot take oral NSAIDs because she had history of gastric bypass surgery. Is empirically placed on erythromycin ointment. Is given other remainder of the tetracaine drops but counseled she can only use them for the first 24 hours and after that there is serious risk of blindness and corneal ulceration. Is given outpatient ophthalmology follow-up Discharge Plan Triage Chief Complaint: Eye Problem ED Provider: Fabiola Guzman Dx/Rx/DC Orders Clinical Impression: Acute chemical conjunctivitis of both eyes Instructions: Conjunctivitis Caused by Irritation Prescriptions: New ketorolac 0.4 % drops 1 drp EACH EYE Q6H PRN (Reason: eye pain) Qty: 5 0RF erythromycin 5 mg/gram (0.5 %) ointment 0.5 inch EACH EYE BID 5 Days Qty: 3.5 0RF No Action dextroamphetamine-amphetamine [Adderall] 5 mg tablet 5 mg PO DAILY dextroamphetamine-amphetamine 10 MG tablet 10 mg PO DAILY albuterol sulfate [Ventolin HFA] 90 mcg/actuation Hfa Aerosol Inhaler 1 puff INHALATION Q6H PRN (Reason: ASTHMA) naproxen [Naprosyn] 500 mg tablet 500 mg PO BID Qty: 20 0RF diphenhydramine HCl [Benadryl] 25 mg capsule 50 mg PO TID PRN (Reason: allergic reaction) Qty: 30 0RF famotidine [Pepcid] 40 mg tablet 40 mg PO DAILY Qty: 14 0RF prednisone 20 mg tablet 60 mg PO DAILY Qty: 12 0RF Stand Alone Forms: ED Work / School Excuse Primary Care Provider: Jeannie Johnston NP Referrals: Red Ferreira MD [Med Staff - Active Staff] - Jeannie Johnston NP, INSPECTING SUPERVISOR-C [Primary Care Provider] - Activity Restrictions/Additional Instructions: Follow-up with gas leak inspector in the next 1 to 2 days for recheck and ensure you are recovering appropriately. Use cool compresses to your eye. Use medications as prescribed. You have been given tetracaine eyedrops to use for pain. You can use it for 24 hours. Do not use it for more than 24 hours because of the serious and significant risk of corneal ulceration and permanent vision damage. For the first 24 hours you can apply 1 drop every 10 to 15 minutes as needed for pain Print Language: Jamaican Disposition Disposition: Home, Self Care Discharge Date/Time: 06/14/25 18:26
[2025-06-14] MEDS: Erythromycin Base 1 OPTH.TUBE 1 APPLIC EACH EYE (18:16)
== END 2025-06-14 18:26 | disposition home or self-care (01) ==
PROVIDERS: Emergency Provider Emergency Medicine; PCP Internal Medicine; Visit Provider Emergency Medicine
DX: H10.213 Acute toxic conjunctivitis, bilateral (principal); H57.13 Ocular pain, bilateral; Z87.891 Personal history of nicotine dependence; R51.9 Headache, unspecified; F12.90 Cannabis use, unspecified, uncomplicated
CPT/HCPCS: 99283

== ENCOUNTER 2025-06-16 08:44 | Emergency (ER) | payer MEDICAID, SELFPAY ==
[2025-06-16 08:45] VITALS: BP 134/69; PULSE 72; RESP 16; TEMP 36.5; O2SAT 99; BMI 36.7
--- NOTE | 2025-06-16 08:55 | EX.ED.VIS.EY ---
HPI History of Present Illness Chief Complaint: Eye Problem Informant: patient Onset/Context/Timing Location: Bilateral Eyes Onset: Days (3) Context: Gradual Onset Timing: Continuous Worsened by: Nothing Relieved by: Nothing Associated Symptoms Associated Symptoms - Eyes: Burning, Crusting, Drainage, Eyelid swelling, Itching, Matting, Pain, Photophobia and Redness; Negative for Foreign body sensation Visual Changes: bilateral: Blurred vision History of injury: Chemical exposure Visual correction: Glasses Narrative Narrative: Patient presents with bilateral eye pain and redness that has been getting worse over the past 3 days. Patient states she got some bleach in her left eye 3 days ago. Patient was seen here 2 days ago and was diagnosed with chemical conjunctivitis. Patient states she has been using antibiotic ointment with no improvement. Patient admits to some matting and crusting. Patient admits to some blurred vision. Patient states she has been unable to follow-up with ophthalmology. [facility] Medical History (Updated 06/16/25 @ 09:[address] Wagner Franklin, DO) H/O low back pain H/O cyst of breast Wears glasses Arthritis Back pain Shortness of breath on exertion Vapes nicotine containing substance Former smoker History of echocardiogram History of stress test History of Holter monitoring Cardiology follow-up encounter Depression ADHD Anemia Heart palpitations Marijuana use Asthma Obesity affecting Home Medications ?Medication ?Instructions ?Recorded ?Last Taken ?Type dextroamphetamine-amphetamine 10 10 mg PO DAILY 04/23/20 06/03/22 History mg tablet albuterol sulfate 90 mcg/actuation 1 puff inhalation Q6H PRN ASTHMA 05/28/22 Unknown History aerosol inhaler (Ventolin HFA) naproxen 500 mg tablet (Naprosyn) 500 mg PO BID #20 tabs 10/25/22 Unknown Rx diphenhydramine HCl 25 mg capsule 50 mg (2 x 25 mg) PO TID PRN 12/20/22 Unknown Rx (Benadryl) allergic reaction #30 caps famotidine 40 mg tablet (Pepcid) 40 mg PO DAILY #14 tabs 12/20/22 Unknown Rx prednisone 20 mg tablet 60 mg (3 x 20 mg) PO DAILY #12 12/20/22 Unknown Rx TABLETS dextroamphetamine-amphetamine 5 mg 5 mg PO DAILY 02/04/24 Unknown History tablet (Adderall) erythromycin 5 mg/gram (0.5 %) eye 0.5 inch EACH EYE BID 5 days #3.5 06/14/25 Unknown Rx ointment grams ketorolac 0.4 % eye drops 1 drp EACH EYE Q6H PRN eye pain #5 06/14/25 Unknown Rx mL Allergy/AdvReac Type Severity Reaction Status Date / Time sertraline HCl (From Zoloft) Allergy Rash Verified 06/16/25 08:47 Sulfa (Sulfonamide Allergy Rash Verified 06/16/25 08:47 Antibiotics) tomato (Tomato) Allergy Hives Verified 06/16/25 08:47 suture AdvReac DISSOLVABLE Verified 06/16/25 08:47 SUTURES DO NOT DISOLVE Family History Grandfather Heart disease Kidney disease Surgical History (Updated 06/16/25 @ 09:[address] Wagner Franklin, DO) H/O gastric sleeve H/O excision of ganglion cyst History of excision of lesion (~06/2022) History of surgery on wrist History of umbilical hernia repair History of 2 sections Social History household members: children Smoking Status: Former smoker how long ago did patient quit smoking: quit january 04, 2023 alcohol intake: current details: social substance use type: marijuana additional social history: pt denies smoking( quit january 04, 2023), denies vaping, Uses medical marijuana daily, edibles last used one month ago denies aspirin use, denies ibuprofen use. ROS ROS ED Constitutional Constitutional ED: Denies chills or fever(s) Eyes Eyes: Denies blurry vision or change in vision ENT ENT ED: Reports rhinorrhea; Denies sore throat Cardiovascular Cardiovascular: Denies chest pain or palpitations Respiratory/Chest Respiratory/Chest: Denies cough or dyspnea Gastrointestinal Gastrointestinal: Denies nausea or vomiting Genitourinary Genitourinary ED: Denies dysuria or hematuria Musculoskeletal Musculoskeletal: Denies back pain or neck pain Integumentary Reports rash; Denies abscess Neurologic Neurologic: Denies headache(s) or weakness Allergic/Immunologic Allergic/Immunologic ED: Denies mouth swelling or urticaria EXAM Physical Exam Const Vital Signs: 06/16/25 08:45 Temperature 97.7 F L Temperature Source Oral Pulse Rate 72 Respiratory Rate 16 Blood Pressure 134/69 H Blood Pressure Mean 90 Pulse Ox 99 Oxygen Delivery Method Room Air Positive well nourished and well developed General Appearance ED: well developed and NAD Eyes Eyes Narrative: Pupils are equal, round, and reactive to light bilaterally. Extraocular muscles are intact. Conjunctiva was injected bilaterally. There are no foreign bodies noted. Anterior chamber was clear. There is no hyphema. Tetracaine and fluorescein dye was applied. There are no corneal abrasions or corneal ulcers noted. There is negative Vanesa sign. Anterior chamber was clear. There is no cell or flare. Patient was unable to tolerate funduscopic examination. Neck supple and no JVD Neuro oriented x3, CN's II-XII intact bilaterally, moves all extremities and no sensory deficits noted Sensorium / Orientation: alert Motor Exam: strength 5/5 throughout MDM MDM MDM Narrative Medical decision making narrative: Intraocular pressures were measured using Walker-Pen. It was 22 on the left eye and 21 on the right eye. Visual acuity was 20/70 in the left eye, 20/70 in the right eye, and 20/40 with both eyes. Patient was advised of her findings. Patient was instructed to stop the erythromycin ointment. Patient was given ciprofloxacin ophthalmic drops. Patient was instructed to use 1 to 2 drops every 2 hours while awake. Patient was given a referral for ophthalmology. Patient was instructed to call the office today to schedule an appointment. Patient was instructed to return if worse in any way. Patient understood and was agreeable with the plan. All questions were answered. History & Record Review Additional record(s) reviewed:: Prior ED visit and Prior labs Discharge Plan Triage Chief Complaint: Eye Problem ED Provider: Wagner Franklin Dx/Rx/DC Orders Clinical Impression: Conjunctivitis Instructions: ED Conjunctivitis, Nonspecific Prescriptions: No Action dextroamphetamine-amphetamine [Adderall] 5 mg tablet 5 mg PO DAILY dextroamphetamine-amphetamine 10 MG tablet 10 mg PO DAILY albuterol sulfate [Ventolin HFA] 90 mcg/actuation Hfa Aerosol Inhaler 1 puff INHALATION Q6H PRN (Reason: ASTHMA) naproxen [Naprosyn] 500 mg tablet 500 mg PO BID Qty: 20 0RF diphenhydramine HCl [Benadryl] 25 mg capsule 50 mg PO TID PRN (Reason: allergic reaction) Qty: 30 0RF famotidine [Pepcid] 40 mg tablet 40 mg PO DAILY Qty: 14 0RF prednisone 20 mg tablet 60 mg PO DAILY Qty: 12 0RF ketorolac 0.4 % drops 1 drp EACH EYE Q6H PRN (Reason: eye pain) Qty: 5 0RF erythromycin 5 mg/gram (0.5 %) ointment 0.5 inch EACH EYE BID 5 Days Qty: 3.5 0RF Stand Alone Forms: ED Work / School Excuse Primary Care Provider: Jeannie Johnston NP Referrals: Red Ferreira MD [Med Staff - Active Staff] - As soon as possible Jeannie Johnston NP, NETWORKING TECHNICIAN-C [Primary Care Provider] - 1 Day for another exam Activity Restrictions/Additional Instructions: Call the coal pulverizer operator office today to schedule appointment in 1 to 2 days. Use the antibiotic eyedrops, 1-2 drops every 2 hours while awake. Print Language: Ecuadorean Disposition Disposition: Home, Self Care
[2025-06-16] MEDS: Tetracaine 0.5% Ophthalmic Bottle 1 DRP OPHTHALMIC (09:23)
[2025-06-16] MEDS: Ciprofloxacin 0.3% 2.5ml Bottle EACH EYE (10:12)
[2025-06-16 10:14] VITALS: BP 135/80; PULSE 78; RESP 16; TEMP 36.6; O2SAT 100
== END 2025-06-16 10:15 | disposition home or self-care (01) ==
LOC: ED 09:43
PROVIDERS: Emergency Provider Emergency Medicine; PCP Internal Medicine; Visit Provider Emergency Medicine
DX: H10.9 Unspecified conjunctivitis (principal); Z87.891 Personal history of nicotine dependence; H57.13 Ocular pain, bilateral; F12.90 Cannabis use, unspecified, uncomplicated; J45.909 Unspecified asthma, uncomplicated
CPT/HCPCS: 99283